=== PATIENT | female | born 1975 | race Caucasian/White ===

== ENCOUNTER 2023-03-14 14:43 | Emergency (ER) | payer MEDICAID, SELFPAY ==
[2023-03-14 15:41] VITALS: BP 128/77; PULSE 110; RESP 18; TEMP 37.1; O2SAT 99; BMI 35.0
--- NOTE | 2023-03-14 15:41 | ED.ABDPAIN ---
HPI - Abdominal Pain General Chief Complaint: Upper Respiratory Symptoms Stated Complaint: abd pain Time Seen by Provider: 03/14/23 16:51 Source: patient Mode of arrival: ambulatory Limitations: no limitations History of Present Illness HPI narrative: 47 yo male with no known medical history here with abdominal pain, cough, sore throat. Son here with similar symptoms. No fevers, chills, neck pain, neck stiffness, headache, skin rash, diarrhea, vomiting, chest pain, shortness of breath. Related Data Allergies Allergy/AdvReac Type Severity Reaction Status Date / Time No Known Allergies Allergy Verified 03/14/23 15:41 Review of Systems Review of Systems Yes all other systems are reviewed and are negative Constitutional: Reports no additional constitutional complaints, Denies body ache(s), Denies chills, Denies fever(s), Denies headache(s) and Denies weakness Eyes: Reports no additional eye complaints and Denies change in vision Reports system reviewed and no additional complaints, except as documented, Denies dizziness, Denies headache(s), Denies nasal congestion, Denies nasal discharge, Denies neck pain and Reports sore throat Cardiovascular: Reports no additional cardiovascular complaints, Denies chest pain, Denies leg edema and Denies dyspnea Respiratory: Reports no additional respiratory complaints, Reports cough and Denies dyspnea Gastrointestinal: Reports no additional gastrointestinal complaints, Reports abdominal pain, Denies diarrhea, Denies nausea and Denies vomiting Genitourinary: Reports no additional female genitourinary complaints and Denies urinary incontinence Musculoskeletal: Reports no additional musculoskeletal complaints, Denies back pain, Denies arthralgias, Denies joint swelling, Denies neck pain, Denies numbness and Denies tingling Skin/Breast: Reports system reviewed and no additional complaints, except as docu and Denies rash Reports system reviewed and no additional complaints, except as documented, Denies Abnormal speech present, Denies dizziness, Denies headache(s), Denies numbness, Denies tingling and Denies weakness [facility] Past Medical History Attestation statement: The following information was validated with the patient. Source: old records reviewed and nursing notes reviewed Onset Date is defined in the Problem List Problems that require an onset date and time if occurred within 24 hrs of arrival to the ED Aortic Dissection and Rupture; Neurologic impairment; Cardiopulmonary Arrest; Endotracheal Intubation; Insertion or Replacement of Mechanical Circulatory Assist Device Social History Social History Advance Directives: No Advance Directives Information Provided: No Physical Exam ED Vital Signs: Vital Signs - 24 hr 03/14/23 15:41 Temperature 98.7 F Pulse Rate 110 H Respiratory Rate 18 Blood Pressure 128/77 Pulse Oximetry 99 Oxygen Delivery Method Room Air BMI result Body Mass Index 35.0 Const General: cooperative, healthy appearing, comfortable and no acute distress Orientation/consciousness: patient oriented x3 Limitations: no limitations HENMT Head: Yes normal to inspection Ears: hearing grossly normal bilaterally and TM's normal bilaterally General nose exam: Normal external nose present Face and sinus: Yes normal facial exam Mouth: Normal oral and palatal mucosa present Throat: Yes posterior oropharynx normal, Yes tonsils normal and Yes uvula midline Eyes General: appearance normal, both eyes and all related structures Pupils: Equal, round and reactive pupils present Neck Neck: Yes normal visual inspection, Yes full ROM, Yes no lymphadenopathy and Yes no meningeal signs Chest Chest palpation & inspection: normal inspection of the chest Resp Effort & Inspection: normal respiratory effort Auscultation: clear to auscultation bilaterally Cardio Rate: regular rate Rhythm: regular rhythm Peripheral pulses: Peripheral pulses 2+ throughout GI Inspection: Yes normal to inspection Palpation (GI): Soft to palpation and nontender Auscultation: normal bowel sounds Back/Spine/Pelvis Thoracic/Lumbar Spine: thoracic and lumbar spine normal to inspection Skin General skin exam: no rashes or lesions noted Neuro General: patient oriented x3, no meningeal signs, no focal motor deficits and normal sensation to monofilament Cranial nerves: Yes Equal, round and reactive pupils present Cognition (Neuro): normal cognition Speech: No Abnormal speech present Gait exam (Neuro): Normal gait present Motor exam (neuro): 5/5 motor strength present throughout Extrem General: Yes normal to inspection, Yes no pedal edema and Yes no calf tenderness Course Course Course Narrative: This is a rapid medical exam. Deferred additional HPI, ROS, PE to primary provider. 47 yo female with no medical problems here with abdominal pain with coughing, cough, sore throat since yesterday. Will send strep, covid/flu/rsv testing VSS Medical Decision Making Medical Decision Making MDM Narrative: 47 yo male with no known medical history here with abdominal pain, cough, sore throat. Son here with similar symptoms. No fevers, chills, neck pain, neck stiffness, headache, skin rash, diarrhea, vomiting, chest pain, shortness of breath. On exam vitals are stable. Lungs are clear. Abdomen soft nontender. Likely viral syndrome Will send testing for strep, flu, COVID, RSV Differential Diagnosis Differential Diagnoses: The differential diagnosis associated with the presentation includes Influenza, viral syndrome, strep pharyngitis, Aom LOW SUSPICION FOR ACUTE ABDOMEN Admission/Observation Consideration of admission/observation: Escalation of care including admission/observation considered Flu A positive -no hypoxia or tachypnea suggesting need for supplemental oxygen and ordered Lab Data MDM Lab Attestation statement: I reviewed the patient's lab results. Flu a POSITIVE Labs: Lab Results 03/14/23 Range/Units 15:54 Influenza Type A (PCR) POSITIVE A (Negative) Influenza Type B (PCR) NEGATIVE (Negative) RSV RNA Qual (PCR) NEGATIVE (Negative) SARS-CoV-2 RNA (RT-PCR) NEGATIVE (Negative) S. pyogenes GrpA JAY Negative (Negative) Independent Historian Clinical information obtained from an independent historian. History obtained from or confirmed by: Friend Tests considered The following testing was considered but not selected: No hypoxia or tachypnea to suggest need for X-ray Prescription Management I considered prescription management with: Antiviral Review Tamiflu with patient. At this time they would like to defer treatment Discharge Plan Discharge Clinical Impression: Influenza Patient Disposition: Home, Self-Care Instructions: Influenza (ED) Additional Instructions: Alternate Motrin or Tylenol for any pain or fever Increase fluids, rest Alterna Motrin o Tylenol para cualquier dolor o fiebre. Elias manzanares?too daniels. Referrals: Physician,None [Primary Care Provider] - 1 week Stand Alone Forms: Work/School Release
== END 2023-03-14 17:22 | disposition home or self-care (01) ==
PROVIDERS: Emergency Provider Emergency Medicine
DX: J10.1 Influenza due to other identified influenza virus with other respiratory manifestations (principal)
CPT/HCPCS: 0241U; 87651; 99282; 99283

== ENCOUNTER 2023-07-15 12:04 | Outpatient (REF) | payer OTHER, SELFPAY ==
--- NOTE | ~2023-07-15 | XR_ITS ---
EXAMINATION: XR KNEE, LEFT CLINICAL INFORMATION: Worsening left knee pain. Question medial effusion. COMPARISON: None available. TECHNIQUE: Three views of the left knee. FINDINGS: No acute fracture or dislocation. No joint space or marginal osteophytes. No osseous erosion. No abnormal soft tissue calcification. Trace joint effusion. XR/XR knee LT 3V IMPRESSION: Trace joint effusion.
== END 2023-07-15 12:05 | disposition home or self-care (01) ==
LOC: HO.HHCX 12:04
PROVIDERS: Visit Provider Emergency Medicine
DX: M25.562 Pain in left knee (principal)
CPT/HCPCS: 73562

== ENCOUNTER 2023-11-30 09:19 | Outpatient (REF) | payer OTHER, SELFPAY ==
[2023-11-30 11:31] LABS: MANUAL DIFF FLAG NO
[2023-11-30 11:35] LABS: Basophils Absolute Auto 0.1 X10*3/uL (0.0-0.2); Eosinophils Absolute Auto 0.3 X10*3/uL (0.0-0.4); Eosinophils Percent Auto 3.7 % (0-4); Hematocrit 31.3 % (37.0-47.0); Hemoglobin 9.7 g/dl (12.0-16.0); Imm Gran Abs Auto 0.03 X10*3/uL (0.00-0.03); Imm Gran Pct Auto 0.3 % (0.0-0.4); Lymphocytes Absolute Auto 3.9 X10*3/uL (1.2-4.9); Lymphocytes Percent Auto 41.8 % (20-40); Mean Corpuscular Hemoglobin 24.7 pg (27.0-33.0); Mean Corpuscular Volume 79.6 fL (80.0-98.0); Mean Platelet Volume 10.1 fL (9.4-12.3); Monocytes Absolute Auto 0.7 X10*3/uL (0.1-1.2); Monocytes Percent Auto 7.4 % (2-11); Neutrophils Absolute Auto 4.3 x10*3/uL (2.0-8.3); Neutrophils Percent Auto 45.8 % (45-73); Platelet Count 581 X10*3/uL (160-400); Red Blood Count 3.93 X10*6/uL (4.20-5.50); Red Cell Distribution Width 17.2 % (11.0-16.0); White Blood Count 9.3 X10*3/uL (4.8-10.8)
[2023-11-30 12:00] LABS: Alanine Aminotransferase 21 U/L (0-31); Albumin Level 4.1 g/dL (3.5-5.0); Alkaline Phosphatase 75 U/L (39-117); Anion Gap 11 (12-20); Aspartate Amino Transferase 17 U/L (5-31); Bilirubin Total 0.4 mg/dL (0.0-1.0); Blood Urea Nitrogen 10 mg/dL (9-16); Calcium 8.8 mg/dL (8.4-10.2); Carbon Dioxide 25 mmol/L (22-29); Chloride 110 mmol/L (96-108); Cholesterol 150 mg/dL (<200); Estimated Glomerular Filt Rate > 60; Glucose Random 104 mg/dL (60-115); HDL Cholesterol 44 mg/dL (>40); LDL Cholesterol Calculated 93 mg/dL (<100); Potassium 3.9 mmol/L (3.3-5.1); Sodium 142 mmol/L (135-145); Total Protein 6.7 g/dL (6.5-8.0); Triglycerides 67 mg/dL (<150)
[2023-11-30 12:13] LABS: HBS Num1 0.55 mIU/mL (0-7.99); HBc Num1 0.15 S/CO (0.00-0.79); HBsAGNum1 0.36 S/CO (0.00-0.99); Hepatitis A Antibody IgM 0.16 Index (0-0.79); Hepatitis B Core Antibody Nonreactive (Nonreactive); Hepatitis B Surface Antigen Negative (Negative); ~HepC Num1 0.23 S/CO (0.00-0.79); ~Hepatitis A Antibody IgM Nonreactive (Nonreactive); ~Hepatitis B Surface Antibody NONREACTIVE (Nonreactive); ~Hepatitis C Antibody Nonreactive (Nonreactive)
[2023-11-30 12:18] LABS: TSH reflex Free T4 0.99 uIU/mL (0.32-4.0); Vitamin D 25-OH Total 34.4 ng/mL (>30)
[2023-11-30 12:44] LABS: Reflex LDLD? No
== END 2023-11-30 09:20 | disposition home or self-care (01) ==
LOC: HO.HHCL 09:19
PROVIDERS: Visit Provider Internal Medicine
DX: M25.562 Pain in left knee (principal); G89.29 Other chronic pain; F43.21 Adjustment disorder with depressed mood
CPT/HCPCS: 36415; 80053; 80061; 82306; 84443; 85025; 86704; 86706; 86709; 86803; 87340

== ENCOUNTER 2023-12-17 11:49 | Outpatient (REF) | payer OTHER, SELFPAY ==
[2023-12-17 13:02] LABS: Hematocrit 32.1 % (37.0-47.0); Hemoglobin 9.9 g/dl (12.0-16.0)
[2023-12-17 13:40] LABS: Ferritin 5 ng/mL (10-250)
[2023-12-17 13:52] LABS: Folate 14.8 ng/mL (> or = 4.0); Vitamin B12 370 pg/mL (200-900)
[2023-12-21 14:48] LABS: Hematocrit 32.6 % (35.0-45.0); MCH 24.6 pg (27.0-33.0); MCV 80.3 fL (80.0-100.0); RBC 4.06 Million/uL (3.80-5.10); RDW 16.3 % (11.0-15.0)
== END 2023-12-17 11:50 | disposition home or self-care (01) ==
LOC: HO.HHCL 11:49
PROVIDERS: Visit Provider Internal Medicine
DX: D50.9 Iron deficiency anemia, unspecified (principal)
CPT/HCPCS: 36415; 82607; 82728; 82746; 83020; 85014; 85018; 85041

== ENCOUNTER 2023-12-17 15:37 | Outpatient (REF) | payer OTHER, SELFPAY ==
--- NOTE | ~2023-12-17 | MM_ITS ---
EXAMINATION: MM SCREENING DIGITAL BREAST TOMOSYNTHESIS, BILATERAL CLINICAL INFORMATION: Screening. Asymptomatic. COMPARISON: Mammography: Comparison is made with available priors TECHNIQUE: Digital breast mammography with tomosynthesis is performed in both the craniocaudal and mediolateral oblique views along with computer-aided detection (CAD). FINDINGS: The breasts are extremely dense, which lowers the sensitivity of mammography (ACR BI-RADS breast composition Category d). Left: Circumscribed oval masses superior breast and central breast retroareolar region posterior depth. No suspicious calcifications or other abnormal findings. Right: Circumscribed oval mass upper outer breast posterior depth and circumscribed oval mass superior breast middle depth on MLO view. Suspicious calcifications or other abnormal findings. MM/MM tomosynthesis screening BI IMPRESSION: Additional imaging is recommended ASSESSMENT: BI-RADS BI-RADS 0 - Incomplete: Needs additional Imaging. RECOMMENDATION: Bilateral ultrasound recommended at this time. Radiology department will contact the patient for the additional imaging. Additional Imaging required This examination should not preclude the clinical evaluation of a suspicious palpable abnormality. This patient's information was entered into a reminder system with a target due date for their next mammogram. Electronically signed by: Carolina Pierson DO 12/29/2023 12:14 PM EDT
== END 2023-12-17 15:38 | disposition home or self-care (01) ==
LOC: HO.MAMMO 15:37
PROVIDERS: PCP Internal Medicine; Visit Provider Internal Medicine
DX: Z12.31 Encounter for screening mammogram for malignant neoplasm of breast (principal)
CPT/HCPCS: 77063; 77067

== ENCOUNTER → 2023-12-17 15:45 | Outpatient (BNV) | payer OTHER, SELFPAY | PROVIDERS: PCP Internal Medicine; Visit Provider Internal Medicine | DX: Z12.31 Encounter for screening mammogram for malignant neoplasm of breast (principal) | CPT/HCPCS: 77063; 77067 ==

== ENCOUNTER 2024-01-28 10:29 | Outpatient (REF) | payer OTHER, SELFPAY ==
--- NOTE | ~2024-01-28 | US_ITS ---
EXAMINATION: US DIAGNOSTIC ULTRASOUND BREAST, BILATERAL CLINICAL INFORMATION: Diagnostic exam; follow-up LEFT breast circumscribed oval masses superior and central breast retroareolar region posterior depth. Follow-up RIGHT circumscribed oval masses upper outer breast posterior depth, and superior breast middle depth on MLO view. COMPARISON: Mammography 12/17/2023, 12/21/2019, 07/13/2018, and 09/01/2016. TECHNIQUE: Ultrasound of the both breasts is performed with real-time matt scale imaging and color Doppler. The RIGHT breast was scanned from the 9:00 to the 3:00 axis, and the LEFT breast was also scanned from the 9:00 to the 3:00 axis to include the areas of mammographic concern. FINDINGS: Multiple bilateral circumscribed masses are by definition benign. -RIGHT breast shows numerous simple cysts, correlating with the mammographic foci. The largest measures 3.0 cm in diameter. -LEFT breast shows numerous grouped simple cysts present, the largest measuring 2.1 cm in diameter. There are no suspicious masses, suspicious cystic structures, abnormal shadowing, or areas of architectural alteration in either breast in the areas interrogated. US/US breast BI limited mamm only IMPRESSION: -There are no findings suspicious for malignancy. -Circumscribed oval masses in both breasts are by definition benign and correlate with multiple simple cysts in both breasts on ultrasound. These findings are benign and no further follow-up recommended. -Recommend the patient resume routine annual screening mammography in one year. ASSESSMENT: BI-RADS 2: Benign RECOMMENDATION: Routine annual mammography screening. This patient's information was entered into a reminder system with a target due date for their next mammogram. Electronically signed by: Guillermo Rush MD 01/28/2024 11:58 AM SARIAH
== END 2024-01-28 10:30 | disposition home or self-care (01) ==
LOC: HO.MAMMO 10:29
PROVIDERS: PCP Internal Medicine; Visit Provider Internal Medicine
DX: N60.02 Solitary cyst of left breast (principal); N60.01 Solitary cyst of right breast
CPT/HCPCS: 76642

== ENCOUNTER → 2024-01-28 11:00 | Outpatient (BNV) | payer OTHER, SELFPAY | PROVIDERS: PCP Internal Medicine; Visit Provider Radiology Diagnostic Radiology | DX: N60.01 Solitary cyst of right breast (principal); N60.02 Solitary cyst of left breast | CPT/HCPCS: 76642 ==

== ENCOUNTER 2024-03-07 16:43 | Outpatient (REF) | payer OTHER, SELFPAY | END 2024-03-07 16:44 | disposition home or self-care (01) | LOC: HO.HHCLNP 16:43 | PROVIDERS: Visit Provider Internal Medicine | DX: Z13.89 Encounter for screening for other disorder (principal) | CPT/HCPCS: 83013 ==

== ENCOUNTER 2024-05-18 14:40 | Outpatient (AMB) | payer OTHER, SELFPAY ==
--- NOTE | 2024-05-18 14:41 | A.OFFVIS_ITS ---
Vital Signs 05/18/24 14:43 Height 5 ft 6 in Weight 189 lb 9.561 oz BMI 30.6 BP 141/81 H Blood Pressure Location Lt brachial Position Sitting Pulse 102 H Intake Visit Reasons: Gastroesophageal reflux disease (GERD) Intake Note: Kylie presents in the office as a new patient for GERD. CC: She states that she is here today due to acid reflux. She states that she has gastritis - she denies irregular bowel movements. She gets pains in the stomach. Post Anesthesia Nurse Required: Yes Allergies No Known Allergies Allergy (Verified 05/18/24 14:44) HPI Comments Details: 48 y.o F with PMH of H Pylori 2019, who is here to establish care. Seen with Brielle REEDER as japanese interpreter. Reason for referral is anemia. Pt reports significant pyrosis if she skips omeprazole. Nausea +. Regurgitation +. No dysphagia. Has been on omeprazole x 5 years. Had an EGD 2019 (Shanice REEDER) when she was also diagnosed with H Pylori - treated. Has never had a colo. Also reports heavy periods. Labs with microcytic anemia and ferritin of 5. Laboratory Tests 12/17/23 11:50 Hgb 9.9 L Hgb (Send Out) 10.0 L Ferritin 5 L PFSH Surgical History (Updated 05/18/24 @ 14:44 by YVETET Guzmán) History of esophagogastroduodenoscopy (EGD) Review of Systems Const All systems reviewed & are unremarkable except as noted in HPI and below Physical Exam Vital Signs: Last Vital Signs Pulse 102 H 05/18/24 14:43 BP 141/81 H 05/18/24 14:43 BMI result Body Mass Index 30.6 No apparent distress Nonicteric Abdomen soft, nondistended Alert and oriented x3, normal gait Assessment & Plan Assessment & Plan (1) Anemia: Code(s): D64.9 - Anemia, unspecified Category: Medical (2) Iron deficiency: Code(s): E61.1 - Iron deficiency Category: Medical (3) GERD (gastroesophageal reflux disease): Code(s): K21.9 - Gastro-esophageal reflux disease without esophagitis Category: Medical (4) Menorrhagia: Code(s): N92.0 - Excessive and frequent menstruation with regular cycle Category: Medical Plan 1. FREDDY: Likely 2/2 menorrhagia. However given upper GI sx will be prudent to get egd/colo done. DDx: PUD, celiac, AVMs, large friable polyp, mass. Reports has already taken 3 months of PO iron since last labs. Pt hesitant to pursue egd as reports was told will not be covered by insurance. Plan: - Recheck CBC and iron studies - FIT canceled - [place] to be booked - Pt will call insurance re EGD and call us back - If still FREDDY - will also recommend IV iron - Pt also advised to discuss machine featheredger and reducer referral for menorrhagia with pcp Follow up after scopes Orders: Orders Complete Blood Count no Diff Today D64.9 - Anemia, unspecified Transglutaminase IgA Today D64.9 - Anemia, unspecified Immunoglobulin A Today D64.9 - Anemia, unspecified Ferritin Today D64.9 - Anemia, unspecified IRON PROFILE Today D64.9 - Anemia, unspecified Vitamin B12 and Folate Today D64.9 - Anemia, unspecified Fecal Globin Insure 12/10/23 D50.9 - Iron deficiency anemia, unspecified Medications: New omeprazole 20 mg PO DAILY 90 caps 1RF peg 3350-electrolytes 236-22.74-6.74 -5.86 gram (Golytely) as per split prep instructions, until fecal effluent is clear 240 mL PO Q10M 4,000 mL 0RF colonoscopy Coding Level of Care Code New Pt Level 4 (57671) Diagnoses Anemia D64.9 Iron deficiency E61.1 GERD (gastroesophageal reflux disease) K21.9 Menorrhagia N92.0
[2024-05-18 14:43] VITALS: BP 141/81; PULSE 102; BMI 30.6
--- OUTSIDE RECORDS SUMMARY | 2024-05-18 17:17 | XMS_ITS | Encounter Summary ---
Author Organization [employer] Address [address] [place] [address] Care Team Providers Care Roving Hauler Name Role Phone Milena Acevedo MD Primary Care Provider + Encounter Details Date Type Department Care Team (Late st Contact Info) Description 05/18/2024 Orders Only GENERIC EXTERNAL DATA DEPARTMENT Provider, Generic External Data Social History Tobacco Use Types Packs/Day Years Used Date Smoking Tobacco: Never Smokeless Tobacco: Never Alcohol Use Standard Drinks/Week Comments Never 0 (1 standard drink = 0.6 oz pur e alcohol) Depression Answer Date Recorded Patient Health Questionnaire-9 Score 1 11/25/2023 Patient Health Questionnaire-9 Score 1 11/25/2023 Last PHQ-9: Questionnaire Data Not on file 0 11/25/2023 Housing Stability Answer Date Recorded What is your housing situation today? I have hector john 11/25/[address] you li ve. Do you have problems with any of the following? None of the above 11/25/2023 Food Insecurity Answer Date Recorded Within the past 12 months, y ou worried that your food would run out before you got money to buy more: Never True 11/25/2023 Within the past 12 months,th e food you bought just didn't last and you didn't have enough money to get more: Never True Transportation Answer Date Recorded In the past 12 months, has l ack of transportation kept you from medical appts, meetings, work or from getting things needed for daily living? No 11/25/2023 Utilities Answer Date Recorded In the past 12 months, has t he electric, gas, oil or water company threatened to shut off services in your home? 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 Not on file Not on file Not on file documented as of this encounter Plan of Treatment Upcoming Encounters Date Type Department Care Team ([facility] st Contact Info) Description 08/04/2024 12:00 PM EDT Office Visit [facility] [address] [place], [place] [phone] Milena Acevedo MD [address] [place], [place] [phone] documented as of this encounter Procedures Procedure Name Priority Date/Time Associated Diagnosis Comments VITAMIN B12/FOLATE, SERUM PANEL Routine 05/18/2024 3:29 PM EDT IRON AND TOTAL IRON BINDING CAPACITY Routine 05/18/2024 3:29 PM EDT CBC Routine 05/18/2024 3:29 PM EDT FERRITIN Routine 05/18/2024 3:29 PM EDT documented in this encounter Results * Vitamin B12 (Cobalamin) and Folate Panel, Serum (05/18/2024 3:29 PM EDT) Vitamin B12 307 200 - 900 pg/mL [facility] Comment:NORMAL 200-900 PG/ML INDETERMINATE 160-199 PG/ML DEFICIENT < 160 PG/ML Folate 14.1 > or = 4.0 ng/mL [facility] Comment:Reference Values:> o r = 4.0 ng/mL< 4.0 ng/mL suggests folate deficiency Methotrexate, aminopterin and folinic acid(leucovorin) are chemotherapeutic agents whose molecularstructures are similar to folate; therefore, the Architectfolate assay cannot be used for patients using these drugs. 05/18/2024 3:29 PM EDT 05/18/2024 3:29 PM EDT Generic External Data Provider LAB BLOOD ORDERAB LES Final Result Performing Organization Address [facility] Co de Phone Number [facility] [address] [place] [address] [phone] * Ferritin (05/18/2024 3:29 PM EDT) Ferritin 28 10 - 250 ng/mL [facility] 05/18/2024 3:29 PM EDT 05/18/2024 3:29 PM EDT Generic External Data Provider LAB BLOOD ORDERAB LES Final Result Performing Organization Address [facility] de Phone Number [facility] [address] [place] [address] [phone] * Iron And Total Iron Binding Capacity (05/18/2024 3:29 PM EDT) Pathologist [facility] Iron 67 30 - 160 mcg/dL [facility] Total Iron Binding Capacity 353 228 - 428 mcg/dL [facility] Percent Iron Saturation 19 15 - 50 % [facility] Unsaturated Iron Binding 286 ug/dL [facility] 05/18/2024 3:29 PM EDT 05/18/2024 3:29 PM EDT Generic External Data Provider LAB BLOOD ORDERAB LES Final Result Performing Organization Address [facility] Co de Phone Number [facility] [address] [place] [address] [phone] * (ABNORMAL) CBC (05/18/2024 3:29 PM EDT) White Blood Count 9.8 4.8 - 10.8 X10*3/uL [facility] Red Blood Count 4.28 4.20 - 5.50 X10*6/uL [facility] Hemoglobin 13.3 12.0 - 16.0 g/dl [facility] Hematocrit 39.1 37.0 - 47.0 % [facility] Mean Corpuscular Volume 91.4 80.0 - 98.0 fL [facility] Mean Corpuscular Hemoglobin 31.1 27.0 - 33.0 pg [facility] Mean Corpuscular HGB Conc 34.0 31.0 - 35.0 g/dl [facility] Red Cell Distribution Width 13.2 11.0 - 16.0 % [facility] Platelet Count 466(H) 160 - 400 X10*3/uL [facility] Mean Platelet Volume 9.7 9.4 - 12.3 fL [facility] NRBC Pct Auto 0.0 0.0 - 0.2 /100WBC [facility] NRBC Abs Auto 0.000 0.0 - 0.012 X10*3/uL [facility] 05/18/2024 3:29 PM EDT 05/18/2024 3:29 PM EDT us Generic External Data Provider LAB BLOOD ORDERAB LES Final Result Performing Organization Address City/State/[facility] Co de Phone Number [facility] [address] [place] [address] [phone] documented in this encounter Visit Diagnoses Not on filedocumented in this encounter Additional Health Concerns Assessment Noted Time PHQ-9 Depression Total Score: 1 11/25/19 24 3:06 PM EDT documented as of this encounter Care Teams Roving Hauler Relationship Specialty Start Date End Date Milena Acevedo MD [address] [place] [phone] PCP - General Internal Medicine 11/25/23 documented as of this encounter
--- OUTSIDE RECORDS SUMMARY | 2024-05-18 17:17 | XMS_ITS | Encounter Summary ---
Author Organization [employer] Address [address] [place] [address] Care Team Providers Care Talkback Host Name Role Phone Milena Acevedo MD Primary Care Provider + Encounter Details Date Type Department Care Team (Late st Contact Info) Description 12/25/[address] [facility] [address] [place] [address] Provider, MD Chasity Social History Tobacco Use Types Packs/Day Years [...] is your housing situation today? 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 [address] [place] [phone] Milena Acevedo MD [address] [place] [phone] documented as of this encounter Procedures Procedure Name Priority Date/Time Associated Diagnosis Comments PAP/HPV Routine 09/29/2019 8:11 AM EDT documented in this encounter Results * HM PAP/HPV (09/29/2019 8:11 AM EDT) Pap Smear 1. NILM 1. NILM HPV Undetected Undetected, Indeterminate , Quantitative, Not Detected Historical Provider HEALTH MAINTENANCE Edited Result - Final documented in this encounter Visit Diagnoses Not on filedocumented in this encounter Additional Health Concerns Assessment Noted Time PHQ-9 Depression Total Score: 1 11/25/19 24 3:06 PM EDT documented as of this encounter Care Teams Talkback Host Relationship Specialty Start Date End Date Milena Acevedo MD [address] [place] [address] [phone] PCP - General Internal Medicine 11/25/23 documented as of this encounter
--- OUTSIDE RECORDS SUMMARY | 2024-05-18 17:17 | XMS_ITS | Clinical Summary ---
Author Organization [employer] Address [address] [place] [address] [address] [place] [address] Care Team Providers Care Learning Administrator Name Role Phone Milena Acevedo MD Primary Care Provider + Allergies Active Allergy Reactions Criticality Noted Date Comments Gramineae Pollens 07/15/2023 Medications ibuprofen 800 MG tablet Take 1 tablet TID for 5-7 days, then every 8 hours as needed for pain or inflammation 30 tablet 4 Active ferrous gluconate (Fergon) 324 (38 Fe) MG tablet Take 1 tablet (324 mg) by mouth with breakfast. 30 tablet 3 4 12/23/19 25 Active Ascorbic Acid (vitamin C) 500 MG tablet Take 1 tablet (500 mg) by mouth Once per day. Take 1 tab po daily with breakfast and Iron pills 30 tablet 3 4 12/23/19 25 Active Blood Pressure Monitoring (Blood Pressure Cuff) misc Use daily as prescribed 1 each 4 Active lisinopril 2.5 MG tablet Take 1 tablet (2.5 mg) by mouth Once per day. 30 tablet 11 5 05/13/19 26 Active cetirizine (ZyrTEC) 10 MG tablet Take 1 tablet (10 mg) by mouth Once per day. 30 tablet 2 5 08/11/19 25 Active Hospital, Clinic, or Other Facility Administered Medication Ordered Dose Route Frequency Start Date End Date Status lidocaine (Xylocaine) 2 % injection 20 mgIndications:Neoplasm of uncertain behavior 20 mg IJ Once 10/23/2023 Active Active Problems Problem Noted Date Diagnosed Date Benign essential HTN 05/12/2024 Assessment & Plan (05/12/2024 1:51 PM EST): New onset. Start low-dose lisinopril and follow-up with me in 4 to 6 weeks with BMP. We discussed about potential side effects including cough, rash or angioedema and hyperkalemia. Counseled re low salt diet/increase moderate physical activity. Check home BP BIW and prn CP/GALVEZ/SAEED Non smoking patient. Rash 05/12/2024 Assessment & Plan (05/12/2024 1:52 PM EST): Very mild, no evidence of angioedema or generalized urticaria. Keep a symptom diary, recommended use of unscented Dove soap or Aveeno soap only. Start Zyrtec daily and follow-up with at next visit in 4 to 6 weeks Chronic gastritis without bleeding 03/07/2024 Assessment & Plan (03/07/2024 9:36 AM EST): She was treated for H Pylori in 2019, will do Urea Breath test today and treat PRN otherwise. Take Sucralfate PRN only. I gave her information about lifestyle modifications and treatment of gastritis. Iron deficiency anemia 03/07/2024 Assessment & Plan (03/07/2024 9:36 AM EST): Unclear if related to DUB vs. PUD. Continue iron supplementation until April 2024 and check labs then. She will need to schedule a colonoscopy. Elevated blood pressure reading 11/25/2023 Assessment & Plan (03/07/2024 9:34 AM EST): She has pre-HTN today. Counseled re low salt diet/increase moderate physical activity. Check home BP 3 times per week and prn CP/GALVEZ/SAEED. Non smoking patient. FU with me in 2 months. Assessment & Plan (11/25/2023 3:24 PM EDT): No history of HTN Counseled re low salt diet/increase moderate physical activity. Check home BP BIW and prn CP/GALVEZ/SAEED Non smoking patient. 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 and refer to PRN Abnormal mammogram of left breast 11/25/2023 Assessment & Plan (11/25/2023 3:26 PM EDT): - status post left breast biopsy more than 5 years ago, results not available - order diagnostic mammogram - pt will have influenza IZ today Chronic pain of left knee 11/25/2023 Assessment & Plan (11/25/2023 3:39 PM EDT): - seems to be either meniscal injury vs early OA - likes to take Tylenol or Ibuprofen PRN - refer to pt History of cholecystectomy 11/25/2023 Encounters Date Type Department Care Team Description 05/18/2024 Orders Only GENERIC EXTERNAL DATA DEPARTMENT Provider, Generic External Data 05/12/2024 11:15 AM EST Office Visit [facility] MEDICINE [address] [place] [phone] Milena Acevedo MD Benign essential HTN (Primary Dx); Rash 05/12/2024 Travel 05/11/2024 Travel 05/10/2024 Telephone [facility]INE [address] [place] [phone] Milena Acevedo MD Chart prep 03/17/2024 1:00 PM EST Office Visit [facility] OPTOMETRY [address] [place] [address] TarkaRhiannon, OD Myopia, bilateral (Primary Dx); Dry eyes, bilateral 03/17/2024 Telephone [facility] MEDICINE [address] [place] [address] Milena Acevedo MD Lab Orders 03/17/2024 Travel 03/16/2024 Travel 03/08/2024 Telephone [facility]INE [address] [place] [address] Carole Lomeli, helicopter technician Orders 03/07/2024 9:00 AM EST Office Visit [address] [address] Milena Acevedo MD Elevated blood pressure reading (Primary Dx); Other chronic gastritis without hemorrhage; Other iron deficiency anemia; Screening for colorectal cancer 03/07/2024 Travel 03/06/2024 Travel 03/04/2024 Telephone [facility] [address] [place] [address] Kassandra Cano MA Chart prep 02/25/2024 Patient Outreach [facility] [address] [place] [address] Milena Acevedo MD Pre-visit Planning (LVM) from Last 3 Months Immunizations Name Administration Dates Next Due Influenza, seasonal, injectable, preservative fr ee 11/25/2023 Social History Tobacco Use Types Packs/Day Years Used Date Smoking Tobacco: Never Smokeless Tobacco: Never Tobacco Cessation:Counseling Given: Not Answered Alcohol Use Standard Drinks/Week Comments Never 0 (1 standard drink = 0.6 oz pur e alcohol) Depression Answer Date Recorded Patient Health Questionnaire-9 Score 1 11/25/2023 Patient Health Questionnaire-9 Score 1 11/25/2023 Last PHQ-9: Questionnaire Data Not on file 0 11/25/2023 Housing Stability Answer Date Recorded What is your housing situation today? 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 Not on file Not on file Last Filed Vital Signs Vital Sign Reading Time Taken Comments Blood Pressure 135/94 05/12/2024 11:25 AM EST Pulse 92 05/12/2024 11:25 AM EST Temperature 36.4 ??C (97.5 ??F) 05/12/2024 1 1:25 AM EST Respiratory Rate 18 05/12/2024 11:2 5 AM EST Oxygen Saturation 100% 03/07/2024 9:04 AM EST Inhaled Oxygen Concentration - - Weight 88.4 kg (194 lb 12.8 oz) 025 11:25 AM EST Height 167.6 cm (5' 6 ) 05/12/2024 11:2 5 AM EST Body Mass Index 31.44 05/12/2024 11:25 AM EST Plan of Treatment Upcoming Encounters Date Type Department Care Team (Late st Contact Info) Description 08/04/2024 12:00 PM EDT Office Visit [facility]INE [address] [place] [address] Milena Acevedo MD [address] [place] [address] Health Maintenance Due Date Last Done Comments CT Colonography 1975 Colonoscopy 1975 Colorectal Cancer Screening 1975 FIT DNA/Cologuard 1975 FIT 1975 FOBT 1975 HIV Screening 1975 Sigmoidoscopy 1976 Alcohol/Substance Use Screening 1988 DTaP/Tdap/Td Vaccines (1 - Tdap) 06/09/1995 Hepatitis B Vaccines (1 of 3 - 19+ 3-dose series) 06/09/1995 COVID-19 Vaccine (2023-2 5 season) 2023 Cervical Cancer Screening 09/28/2024 HPV/Cotest 09/28/2024 09/29/2019 Pap Smear 09/28/2024 09/29/2019 Depression Screening 11/24/2024 11/25/2023, 11/25/2023 Family Planning (PISQ) 11/24/2024 11/25/2023 SDOH Screening 11/24/2024 11/25/2023 Mammogram 01/27/2025 01/28/2024, 12/17/2023 Tobacco Screening 05/12/2025 05/12/2024 Zoster Vaccines (1 of 2) 2026 Lipid Panel 11/29/2028 11/30/2023 RSV Patients and Patients Aged 60 years or older (1 - 1-dose 75+ series) 06/09/2051 Influenza Vaccine Completed 11/25/2023 Hepatitis C Screening Completed 11/30/2023 HIB Vaccines Aged Out No longer eligi ble based on patient's age to complete this topic HPV Vaccines Aged Out No longer eligi ble based on patient's age to complete this topic Hepatitis A Vaccines Aged Out No long er eligible based on patient's age to complete this topic IPV Vaccines Aged Out No longer eligi ble based on patient's age to complete this topic Meningococcal Vaccine Aged Out No diana stew eligible based on patient's age to complete this topic Pneumococcal Vaccine: Pediatrics (0 to 5 Years) and At-Risk Patients (6 to 49) Years) Aged Out No longer eligible b ased on patient's age to complete this topic RSV under 20 months Aged Out No longe r eligible based on patient's age to complete this topic Rotavirus Vaccines Aged Out No longer eligible based on patient's age to complete this topic Procedures Procedure Name Priority Date/Time Associated Diagnosis Comments VITAMIN B12/FOLATE, SERUM PANEL Routine 05/18/2024 3:29 PM EDT FERRITIN Routine 05/18/2024 3:29 PM EDT IRON AND TOTAL IRON BINDING CAPACITY Routine 05/18/2024 3:29 PM EDT CBC Routine 05/18/2024 3:29 PM EDT BI US BREAST LIMITED BILATERAL Routine 01/28/2024 11:00 AM EST HEPATITIS PANEL, GENERAL Routine 11/30/2023 9:21 AM EDT Adjustment disorder with depressed mood LIPID PANEL WITH REFLEX TO DIRECT LDL Routine 11/30/2023 9:20 AM EDT Adjustment disorder with depressed mood HM PAP/HPV Routine 09/29/2019 8:11 AM EDT from Last 3 Months or Most Recently Relevant to Health Maintenance Results * Vitamin B12 (Cobalamin) and Folate Panel, Serum (05/18/2024 3:29 PM EDT) Vitamin B12 307 200 - 900 pg/mL [facility] Comment:NORMAL 200-900 PG/ML INDETERMINATE 160-199 PG/ML DEFICIENT < 160 PG/ML Folate 14.1 > or = 4.0 ng/mL [facility] Comment:Reference Values:> o r = 4.0 ng/mL< 4.0 ng/mL suggests folate deficiency Methotrexate, aminopterin and folinic acid(leucovorin) are chemotherapeutic agents whose molecularstructures are similar to folate; therefore, the Architectfolate assay cannot be used for patients using these drugs. 05/18/2024 3:29 PM EDT 05/18/2024 3:29 PM EDT us Generic External Data Provider LAB BLOOD ORDERAB LES Final Result [facility] [address] [place] [phone] * Iron And Total Iron Binding Capacity (05/18/2024 3:29 PM EDT) Iron 67 30 - 160 mcg/dL [facility] Total Iron Binding Capacity 353 228 - 428 mcg/dL [facility] Percent Iron Saturation 19 15 - 50 % [facility] Unsaturated Iron Binding 286 ug/dL [facility] 05/18/2024 3:29 PM EDT 05/18/2024 3:29 PM EDT us Generic External Data Provider LAB BLOOD ORDERAB LES Final Result Performing Organization Address City/[facility]/ZIP Co de Phone Number [facility] [address] [place] [address] [phone] * (ABNORMAL) CBC (05/18/2024 3:29 PM EDT) White Blood Count 9.8 4.8 - 10.8 X10*3/uL [facility] Red Blood Count 4.28 4.20 - 5.50 X10*6/uL [facility] Hemoglobin 13.3 12.0 - 16.0 g/dl [facility] Hematocrit 39.1 37.0 - 47.0 % [facility] Mean Corpuscular Volume 91.4 80.0 - 98.0 fL [facility] Mean Corpuscular Hemoglobin 31.1 27.0 - 33.0 pg [facility] Mean Corpuscular HGB Conc 34.0 31.0 - 35.0 g/dl [facility] Red Cell Distribution Width 13.2 11.0 - 16.0 % [facility] Platelet Count 466(H) 160 - 400 X10*3/uL [facility] Mean Platelet Volume 9.7 9.4 - 12.3 fL [facility] NRBC Pct Auto 0.0 0.0 - 0.2 /100WBC [facility] NRBC Abs Auto 0.000 0.0 - 0.012 X10*3/uL [facility] 05/18/2024 3:29 PM EDT 05/18/2024 3:29 PM EDT us Generic External Data Provider LAB BLOOD ORDERAB LES Final Result Performing Organization Address City/[facility]/ZIP Co de Phone Number [facility] [address] [place] [address] [phone] * Ferritin (05/18/2024 3:29 PM EDT) Ferritin 28 10 - 250 ng/mL [facility] 05/18/2024 3:29 PM EDT 05/18/2024 3:29 PM EDT us Generic External Data Provider LAB BLOOD ORDERAB LES Final Result [facility] [address] [facility] [place] [address] [phone] * BI US Breast Limited Bilateral (01/28/2024 11:00 AM EST) Anatomical Region Laterality Modality Breast Bilateral Ultrasound 01/28/2024 11:0 0 AM EST Narrative 01/28/2024 12:01 PM EST ? [facility] ? [address] ?[place] [address] ? Ultrasound Report ? Signed ? Patient: Donovan,Kylie ?MR#: [id number] ? : 1975 ?Acct:[id number] ? Age/Sex: 48 / F ?ADM Date: 01/28/24 ? Loc: HO.MAMMO ? Attending Dr: Milena Acevedo MD ? Ordering Physician: Milena Acevedo MD ?? Date of Service: 01/28/24 ?? Procedure(s): US breast BI limited mamm only ?? Accession Number(s): [id number] ? cc: Milena Acevedo MD ? EXAMINATION: ?? US DIAGNOSTIC ULTRASOUND BREAST, BILATERAL ? CLINICAL INFORMATION: ? Diagnostic exam; follow-up LEFT breast circumscribed oval masses ?? superior and central breast retroareolar region posterior depth. ?? Follow-up RIGHT circumscribed oval masses upper outer breast posterior ?? depth, and superior breast middle depth on MLO view. ? COMPARISON: ?? Mammography 12/17/2023, 12/21/2019, 07/13/2018, and 09/01/2016. ? TECHNIQUE: ?? Ultrasound of the both breasts is performed with real-time matt scale ?? imaging and color Doppler. The RIGHT breast was scanned from the 9:00 ?? to the 3:00 axis, and the LEFT breast was also scanned from the 9:00 to ?? the 3:00 axis to include the areas of mammographic concern. ? FINDINGS: ?? Multiple bilateral circumscribed masses are by definition benign. ? -RIGHT breast shows numerous simple cysts, correlating with the ?? mammographic foci. The largest measures 3.0 cm in diameter. ? -LEFT breast shows numerous grouped simple cysts present, the largest ?? measuring 2.1 cm in diameter. ? There are no suspicious masses, suspicious cystic structures, abnormal ?? shadowing, or areas of architectural alteration in either breast in the ?? areas interrogated. ? US/US breast BI limited mamm only ?? IMPRESSION: ?? -There are no findings suspicious for malignancy. ? -Circumscribed oval masses in both breasts are by definition benign and ?? correlate with multiple simple cysts in both breasts on ultrasound. ?? These findings are benign and no further follow-up recommended. ? -Recommend the patient resume routine annual screening mammography in ?? one year. ? ASSESSMENT: ? BI-RADS 2: Benign ? RECOMMENDATION: ?? Routine annual mammography screening. ? This patient's information was entered into a reminder system with a ?? target due date for their next mammogram. ? Electronically signed by: ??Guillermo Rush MD ??01/28/2024 11:58 AM EST RP ? Dictated By: ?Guillermo Rush MD ? Signed By: ?<Electronically signed by Guillermo Rush MD in OV> ?01/28/24 1158 ? DD/ 1100 ? TD/TT: 01/28/24 1120 ? Ship'S Engineer: ? Procedure Note Nahum, Image - 01/28/2024 [facility] [address] [place] [address] [place] [address] Ultrasound Report Signed Patient: Michi Donovan#: [id number] : 1975Acct:[id number] Age/Sex: 48 / FADM Date: 01/28/24 Loc: HO.MAMMO Attending Dr: Milena Acevedo MD Ordering Physician: Milena Acevedo MD Date of Service: 01/28/24 Procedure(s): US breast BI limited mamm only Accession Number(s): [id number] cc: Milena Acevedo MD EXAMINATION: US DIAGNOSTIC ULTRASOUND BREAST, BILATERAL CLINICAL INFORMATION: Diagnostic exam; follow-up LEFT breast circumscribed oval masses superior and central breast retroareolar region posterior depth. Follow-up RIGHT circumscribed oval masses upper outer breast posterior depth, and superior breast middle depth on MLO view. COMPARISON: Mammography 12/17/2023, 12/21/2019, 07/13/2018, and 09/01/2016. TECHNIQUE: Ultrasound of the both breasts is performed with real-time matt scale imaging and color Doppler. The RIGHT breast was scanned from the 9:00 to the 3:00 axis, and the LEFT breast was also scanned from the 9:00 to the 3:00 axis to include the areas of mammographic concern. FINDINGS: Multiple bilateral circumscribed masses are by definition benign. -RIGHT breast shows numerous simple cysts, correlating with the mammographic foci. The largest measures 3.0 cm in diameter. -LEFT breast shows numerous grouped simple cysts present, the largest measuring 2.1 cm in diameter. There are no suspicious masses, suspicious cystic structures, abnormal shadowing, or areas of architectural alteration in either breast in the areas interrogated. US/US breast BI limited mamm only IMPRESSION: -There are no findings suspicious for malignancy. -Circumscribed oval masses in both breasts are by definition benign and correlate with multiple simple cysts in both breasts on ultrasound. These findings are benign and no further follow-up recommended. -Recommend the patient resume routine annual screening mammography in one year. ASSESSMENT: BI-RADS 2: Benign RECOMMENDATION: Routine annual mammography screening. This patient's information was entered into a reminder system with a target due date for their next mammogram. Electronically signed by: Guillermo Rush MD 01/28/2024 11:58 AM EST Dictated By: Guillermo Rush MD Signed By: <Electronically signed by Guillermo Rush MD in OV> 01/28/24 1158 DD/ 1100 TD/TT: 01/28/24 1120 Ship'S Engineer: us Milena Acevedo MD IMG US PROCEDURES Final Result * Hepatitis Panel, General (11/30/2023 9:21 AM EDT) Hepatitis A IgM Nonreactive Nonreactive [facility] Comment:IgM antibodies to GALVEZ V not detected; does not exclude earlyacute or recovered HAV infection. ~Hepatitis B Surface Antibody NONREACTIVE Nonreactive [facility] Comment:Nonreactive: < 8.00 mIU/mL Hepatitis B Core Antibody Nonreactive Nonreactive [facility] Hepatitis C Antibody Nonreactive Nonreactive [facility] Comment:Antibodies to HCV no t detected; does not exclude early acuteHCV infection. Hepatitis B Surface Ag Negative Negative [facility] Blood 11/30/2023 9:21 AM EDT 11/30/2023 11:26 AM EDT us Milena Acevedo MD LAB BLOOD ORDERABLES Fin al Result Performing Organization Address City/State/[facility] Co de Phone Number [facility] [address] [place] [phone] * Lipid Panel with Reflex to Direct LDL (11/30/2023 9:20 AM EDT) Triglycerides 67 <150 mg/dL [facility] Comment:Desirable Triglyceri de: less than 150 mg/dLBorderline High Triglyceride 150-199 mg/dLHigh Triglyceride: 200-499 mg/dLVery High Triglyceride: greater than or equal to 5OO mg/dL Cholesterol 150 <200 mg/dL [facility] Comment:Desirable Cholestero l: less than 200 mg/dLBorderline High Cholesterol: 200-239 mg/dLHigh Cholesterol: greater than 239 mg/dL LDL Cholesterol Calculated 93 <100 mg/dL [facility] Comment:Desirable LDL: less than 100 mg/dLNear Optimal/Above Optimal LDL: 110- 129 mg/dLBorderline High LDL: 130-159 mg/dLHigh LDL: 160-189 mg/dLVery High LDL: greater than or equal to 190 mg/dL HDL Cholesterol 44 >40 mg/dL [facility] Comment:Desirable HDL: great er than 40 mg/dL Note: This HDL assay may give artificially low results in patients with liver disease. Blood 11/30/2023 9:20 AM EDT 11/30/2023 11:26 AM EDT Milena Acevedo MD LAB BLOOD ORDERABLES Fin al Result [facility] [address] [place] [address] [phone] * HM PAP/HPV (09/29/2019 8:11 AM EDT) Pap Smear 1. NILM 1. NILM HPV Undetected Undetected, Indeterminate , Quantitative, Not Detected Historical Provider HEALTH MAINTENANCE Edited Result - Final from Last 3 Months or Most Recently Relevant to Health Maintenance Insurance [facility] Care Teams Learning Administrator Relationship Specialty Start Date End Date Milena Acevedo MD [address] [place] [phone] PCP - General Internal Medicine 11/25/23
--- OUTSIDE RECORDS SUMMARY | 2024-05-18 17:17 | XMS_ITS | Encounter Summary ---
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 on file Not on file Not on file documented as of this encounter Last Filed Vital Signs Vital Sign Reading Time Taken Comments Blood Pressure 135/94 05/12/2024 11:25 AM EST Pulse 92 05/12/2024 11:25 AM EST Temperature 36.4 ??C (97.5 ??F) 05/12/2024 1 1:25 AM EST Respiratory Rate 18 05/12/2024 11:2 5 AM EST Oxygen Saturation - - Inhaled Oxygen Concentration - - Weight 88.4 kg (194 lb 12.8 oz) 025 11:25 AM EST Height 167.6 cm (5' 6 ) 05/12/2024 11:2 5 AM EST Body Mass Index 31.44 05/12/2024 11:25 AM EST documented in this encounter Progress Notes * Milena Acevedo MD - 05/12/2024 11:15 AM EST SUBJECTIVE: Kylie Donovan is a 48 y.o. year old female who presents for follow up BP. Denies recent illness, injury, or hospitalization. Patient here for BP check, she is doing well, denies chest pain, exertional dyspnea, headache, dizziness. Her BP readings from home showed BP at 105-150/84-95. Acute Concerns: Complaining of temporary hives on hands and occasionally on thighs for the past 2 to 3 weeks that usually happen after taking hot showers. She has not had the symptoms before. She does not have angioedema, shortness of breath. Rash usually resolves within few hours. She has used different soaps with no change in symptoms, last time she had this rash was this morning. Social History Social History Narrative Not on file Patient Active Problem List Diagnosis Elevated blood pressure reading Adjustment disorder with depressed mood Abnormal mammogram of left breast Chronic pain of left knee History of cholecystectomy Chronic gastritis without bleeding Iron deficiency anemia Benign essential HTN Rash No family history on file. Review of Systems Constitutional: Negative for chills, fatigue and fever. HENT: Negative for congestion, ear pain, nosebleeds, rhinorrhea, sinus pressure, sore throat and trouble swallowing. Eyes: Negative for pain and discharge. Respiratory: Negative for cough, chest tightness and shortness of breath. Cardiovascular: Negative for chest pain, palpitations and leg swelling. Gastrointestinal: Negative for abdominal pain, blood in stool, constipation, diarrhea and nausea. Endocrine: Negative for polydipsia and polyuria. Genitourinary: Negative for dysuria, frequency, genital sores, pelvic pain and vaginal discharge. Musculoskeletal: Negative for back pain and neck pain. Skin: Positive for rash. Allergic/Immunologic: Negative for environmental allergies. Neurological: Negative for dizziness, seizures, weakness, light-headedness and headaches. Hematological: Negative for adenopathy. Psychiatric/Behavioral: Negative for agitation, behavioral problems, self-injury and suicidal ideas. OBJECTIVE: Vitals: 05/12/24 1125 BP: (!) 135/94 Pulse: 92 Resp: 18 Temp: 97.5 ??F (36.4 ??C) Physical Exam HENT: Right Ear: Tympanic membrane and ear canal normal. Left Ear: Tympanic membrane and ear canal normal. Mouth/Throat: Mouth: Mucous membranes are moist. Pharynx: No oropharyngeal exudate or posterior oropharyngeal erythema. Eyes: Pupils: Pupils are equal, round, and reactive to light. Cardiovascular: Rate and Rhythm: Regular rhythm. Pulses: Normal pulses. Heart sounds: Normal heart sounds. No murmur heard. Pulmonary: Breath sounds: Normal breath sounds. Abdominal: General: Bowel sounds are normal. Palpations: Abdomen is soft. Tenderness: There is no abdominal tenderness. Musculoskeletal: General: Normal range of motion. Cervical back: Neck supple. Skin: General: Skin is warm. Findings: Rash present. Rash is urticarial (2 small/less than 1 cm urticarial blebs on the right hand). Neurological: General: No focal deficit present. Mental Status: She is alert and oriented to person, place, and time. Psychiatric: Mood and Affect: Mood normal. Behavior: Behavior normal. Problem List Items Addressed This Visit Benign essential HTN - Primary New onset. Start low-dose lisinopril and follow-up with me in 4 to 6 weeks with BMP. We discussed about potential side effects including cough, rash or angioedema and hyperkalemia. Counseled re low salt diet/increase moderate physical activity. Check home BP BIW and prn CP/GALVEZ/SAEED Non smoking patient. Relevant Orders Basic Metabolic Panel Rash Very mild, no evidence of angioedema or generalized urticaria. Keep a symptom diary, recommended use of unscented Dove soap or Aveeno soap only. Start Zyrtec daily and follow-up with at next visit in 4 to 6 weeks Relevant Orders Basic Metabolic Panel Follow Up: Current Outpatient Medications on File Prior to Visit Medication Sig Dispense Refill Ascorbic Acid (vitamin C) 500 MG tablet Take 1 tablet (500 mg) by mouth Once per day. Take 1 tab podaily with breakfast and Iron pills 30 tablet 3 Blood Pressure Monitoring (Blood Pressure Cuff) misc Use daily as prescribed 1 each 0 ferrous gluconate (Fergon) 324 (38 Fe) MG tablet Take 1 tablet (324 mg) by mouth with breakfast. 30tablet 3 ibuprofen 800 MG tablet Take 1 tablet TID for 5-7 days, then every 8 hours as needed for pain or inflammation 30 tablet 0 Current Facility-Administered Medications on File Prior to Visit Medication Dose Route Frequency Provider Last Rate Last Admin lidocaine (Xylocaine) 2 % injection 20 mg 1 mL Injection Once Guille Posada MD documented in this encounter Miscellaneous Notes * Patient Education Note - Milena Acevedo MD - 05/12/2024 4:35 PM EST Images from the original note were not included. Patient Education Table of Contents Dieta mediterr?jaspreet (Mediterranean Diet) To view videos and all your education online visit, [email or web address] or scan this QR code with your smartphone. Access to this content will in one year. Dieta mediterr?jaspreet Mediterranean Diet La dieta mediterr?jaspreet se basa en las tradiciones de los pa?ses ubicados en las jose honorio Mediterr?barbara. Se centra en comer m?s: Frutas y verduras. Cereales integrales, frijoles, chun secos y semillas. Grasas cardiosaludables. Estas son grasas que son buenas para el coraz?n. Implica comer menos: Productos l?cteos. Carne y huevos. Alimentos procesados con az?car, laura y grasa agregadas. Reema tipo de dieta puede ayudar a prevenir ciertas afecciones. Tambi?n puede mejorar los resultadossi usted tiene rakel enfermedad a william plazo (cr?anthony), marquita rakel enfermedad renal o card?blanca. Consejos para seguir reema plan Al leer las etiquetas de los alimentos Revise los alimentos envasados para conocer lo siguiente: El kayy?o de la porci?n. En el armando del arroz y la pasta, el kayy?o de la porci?n es la cantidad dealimento cocido, no seco. Las grasas totales. Evite los alimentos que contienen grasas saturadas o grasas trans. Az?cares agregados, marquita el jarabe de ma?z. Al ir de compras Intente consumir rakel dieta equilibrada. Compre alimentos variados marquita, por ejemplo: ? Frutas y verduras frescas. Es posible que pueda obtenerlas en los mercados de agricultores locales. Tambi?n puede comprarlas congeladas. ? Cereales, frijoles, chun secos y semillas. Algunos de estos pueden comprarse a granel. ? Mariscos frescos. ? Aves y huevos. ? Productos l?cteos con bajo contenido de grasa. Compre ingredientes enteros en lugar de alimentos que ya hayan sido envasados. Si no puede conseguir mariscos frescos de buena calidad, compre camarones congelados precocidos o pescado en hussein, marquita at?n, salm?n o juan j. Surta carrasquillo despensa para tener siempre determinados productos a mano, por ejemplo, aceite de peña, at?n en hussein, tomates en hussein, arroz, pasta y frijoles. Al cocinar Cocine con aceite de peña extra colette en lugar de usar mantequilla u otros aceites vegetales. Coma la carne joshua marquita guarnici?n. Coma verduras o cereales marquita plato principal. [place] significa consumir porciones magdiel?as de carne o agregarla a la pasta o a los guisos en magdiel?as cantidades. Use frijoles o verduras en lugar de carne en platos comunes marquita chili o lasa?a. Pruebe diferentes m?todos de cocci?n. Intente asar, cocer al vapor y saltear verduras. Agregue verduras congeladas a sopas, guisos, pasta o arroz. Agregue chun secos o semillas para cubrir la porci?n de grasas saludables y prote?na vegetal en cada comida. Puede agregarlos a yogures, ensaladas o platos con verduras. Marine el pescado o las verduras con aceite de peña, jugo de vallejo?n, ajo y hierbas frescas. Planificaci?n de las comidas Planifique consumir rakel comida vegetariana un d?a a la semana. Si es posible, intente agregar hastados comidas vegetarianas. Coma mariscos dos o m?s veces por semana. Tenga a mano colaciones sanas. Pueden incluir: ? Bastones de verduras con humus. ? Yogur elli. ? Mezcla de chun secos y frutas. Consuma comidas equilibradas. Estas deber?an incluir: ? Fruta: 2 o 3?porciones por d?a. ? Verdura: 4 o 5?porciones por d?a. ? Productos l?cteos descremados: 2 porciones por d?a. ? Carne magra, de ave o de pescado: 1 porci?n por d?a. ? Frijoles y legumbres: 2 o m?s porciones por semana. ? Chun secos y semillas: 1 o 2 porciones por d?a. ? Cereales integrales: 6 a 8?porciones por d?a. ? Aceite de peña extra colette: 3 o 4 porciones por d?a. Limite las tami jay y los dulces a solo unas porciones al mes. Estilo de rafael Trate de cocinar y comer con carrasquillo hermilo. Fawn suficiente l?quido para mantener el pis (orina) de color amarillo p?lido. Mant?ngase f?sicamente activo todos los d?as. [place] incluye: ? Ejercicio aer?bico, que es el ejercicio que hace que el coraz?n hussein m?s r?pido. Por ejemplo, correr y nadar. ? Actividades recreativas, marquita jardiner?a, caminatas o tareas dom?sticas. Intente dormir de 7 a 8?horas todas las noches. Fawn vino tinto si el m?dico lo autoriza. Rakel copa de vino tiene 5?oz (150?ml). Es posible que le permitan joe: ? Hasta 1 copa por d?a si es lubna y no est?? embarazada. ? Hasta 2 copas por d?a si es hombre. ?Qu?? alimentos terri comer? Frutas Manzanas. Damascos. Aguacate. Bayas. Bananas. Cerezas. D?tiles. Higos. Uvas. Carolyn. Kathy?n. Naranjas. Duraznos. Ciruelas. Sawyer. Verduras Alcachofas. Remolachas. Br?coli. Repollo. Zanahorias. Berenjena. Wilmot?as verdes. Acelga. Col rizada.Espinaca. Cebollas. Puerro. Guisantes. Calabaza. Tomates. Pimientos. R?ana. Cereales Pastas integrales. Arroz integral. Karley burgol. Polenta. Cusc?s. Wilkinson integral. Kevin. Quinua. Tami y otras prote?kaia Frijoles. Almendras. Semillas de girasol. Pi?ones. Man?es. Bacalao. Salm?n. Vieiras. Camarones. At?n. Tilapia. Almejas. Ostras. Huevos. Anderson o pavo sin piel. L?cteos Leche con bajo contenido de grasa. Queso. Yogur elli. Grasas y aceites Aceite de peña extra colette. Aceite de aguacate. Aceite de semillas de uva. Bebidas Agua. Vino tinto. T?? de hierbas. Dulces y postres Yogur elli con miel. Manzanas asadas. Peras asadas. Mezcla de chun secos. Ali?os y condimentos Albahaca. Cilantro. Coriandro. Comino. Menta. Perejil. Salvia. Madrid. Estrag?n. [place]. Or?gano. Tomillo. Sj. Aceto bals?naina. Tahini. Hummus. Salsa de tomate. Sherwood. Hongos. Es posible que los productos que se enumeran m?s arriba no courtney todos los alimentos y las bebidas que puede consumir. Consulte a un nutricionista para obtener m?s informaci?n. ?Qu?? alimentos terri limitar? Esta es rakel lista de los alimentos que se deben comer con muy poca frecuencia. Frutas Frutas enlatadas con ericka?bar. Verduras Roldan fritas. Cereales Comidas con arroz o pasta envasados. Cereales con az?car agregado. Refrigerios con az?car agregada. Tami y otras prote?kaia Carne de alcira. Cerdo. Diggs. Anderson o pavo con piel. Perros calientes. Tocino. L?cteos Helados. Crema agria. Leche entera. Grasas y aceites Mantequilla. Aceite de canola. Aceite vegetal. Grasa de carne de res. Branscomb de cerdo. Bebidas Jugos. Refrescos endulzados con az?car. Cerveza. Licores y bebidas espirituosas. Dulces y postres Galletitas. Bizcochuelos. Pasteles. Caramelos. Ali?os y condimentos Mayonesa. Salsas y adobos listos para consumir. Es posible que los productos que se enumeran m?s arriba no courtney todos los alimentos y las bebidas que debe limitar. Consulte a un nutricionista para obtener m?s informaci?n. D?nde obtener m?s informaci?n Australian Heart Association (Asociaci?n Estadounidense del Coraz?n, AHA): heart.org Esta informaci?n no tiene marquita fin reemplazar el consejo del m?dico. Aseg?rese de hacerle al m?dicocualquier pregunta que tenga. Document Released: 2017-10-12 Document Updated: 2023-07-09 Document Reviewed: 2023-07-09 Elsevier Patient Education ? 2024 Elsevier Inc. * Assessment & Plan Note - Milena Acevedo MD - 05/12/2024 1:52 PM EST Associated Problem(s): Rash Very mild, no evidence of angioedema or generalized urticaria. Keep a symptom diary, recommended use of unscented Dove soap or Aveeno soap only. Start Zyrtec daily and follow-up with at next visit in 4 to 6 weeks * Assessment & Plan Note - Milena Acevedo MD - 05/12/2024 1:51 PM EST Associated Problem(s): Benign essential HTN New onset. Start low-dose lisinopril and follow-up with me in 4 to 6 weeks with BMP. We discussed about potential side effects including cough, rash or angioedema and hyperkalemia. Counseled re low salt diet/increase moderate physical activity. Check home BP BIW and prn CP/GALVEZ/SAEED Non smoking patient. documented in this encounter Plan of Treatment Upcoming Encounters Date Type Department Care Team (Late st Contact Info) Description 08/04/2024 12:00 PM EDT Office Visit [facility] MED[facility]INE [address] [place] [address] Milena Acevedo MD [address] [place] [address] Scheduled Orders Name Type Priority Associated Diagnoses Orde r Schedule Basic Metabolic Panel Lab Routine Benign essential HTN Rash Expected: 05/12/2024 (Approximate), Expires: 05/12/2025 documented as of this encounter Visit Diagnoses Diagnosis Benign essential HTN- Primary Rash Rash and other nonspecific skin eruption documented in this encounter Additional Health Concerns Assessment Noted Time PHQ-9 Depression Total Score: 1 11/25/19 24 3:06 PM EDT documented as of this encounter Care Teams Clinical Laboratory Aide Relationship Specialty Start Date End Date Milena Acevedo MD [address] [place] [phone] PCP - General Internal Medicine 11/25/23 documented as of this encounter
--- OUTSIDE RECORDS SUMMARY | 2024-05-18 17:17 | XMS_ITS | Encounter Summary ---
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 Not on file Not on file Not on file documented as of this encounter Plan of Treatment Upcoming Encounters Date Type Department Care Team (Late st Contact Info) Description 08/04/2024 12:00 PM EDT Office Visit [facility] MEDICINE [address] [place] [phone] Milena Acevedo MD [address] [place] [address] documented as of this encounter Visit Diagnoses Not on filedocumented in this encounter Additional Health Concerns Assessment Noted Time PHQ-9 Depression Total Score: 1 11/25/19 24 3:06 PM EDT documented as of this encounter Care Teams Remodeler Relationship Specialty Start Date End Date Milena Acevedo MD [address] [place] [phone] PCP - General Internal Medicine 11/25/23 documented as of this encounter
--- OUTSIDE RECORDS SUMMARY | 2024-05-18 17:17 | XMS_ITS | Encounter Summary ---
Author Organization [employer] Address [address] [facility] 7t [place] [address] Care Team Providers Care Lump Inspector Name Role Phone Milena Acevedo MD Primary Care Provider + Reason for Visit * Reason Onset Date Comments New Patient 01/07/2023 Encounter Details Date Type Department Care Team (Late st Contact Info) Description 01/07/[address] 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 EFFECTIVE SINCE 01/07/2023 documented in this encounter Plan of Treatment Upcoming Encounters Date Type Department Care Team (Late st Contact Info) Description 08/04/2024 12:00 PM EDT Office Visit [facility] [address] [place] [address] Milena Acevedo MD [address] [place] [address] documented as of this encounter Visit Diagnoses Not on filedocumented in this encounter Care Teams Lump Inspector Relationship Specialty Start Date End Date Milena Acevedo MD [address] [place] [address] PCP - General Internal Medicine 11/25/23 documented as of this encounter
--- OUTSIDE RECORDS SUMMARY | 2024-05-18 17:17 | XMS_ITS | Encounter Summary ---
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 Not on file Not on file documented as of this encounter Miscellaneous Notes * Telephone Encounter - Kassandra Cano MA - 05/10/2024 9:50 AM EST Chart Prep Labs: not done Images: done Vaccines due: yes Referrals: pending appt Screenings: colonoscopy Overdue care gaps: N/A documented in this encounter Plan of Treatment Upcoming Encounters Date Type Department Care Team (Late st Contact Info) Description 08/04/2024 12:00 PM EDT Office Visit [facility] MEDICINE [address] [place] [address] Milena Acevedo MD [address] [place] [address] documented as of this encounter Visit Diagnoses Not on filedocumented in this encounter Additional Health Concerns Assessment Noted Time PHQ-9 Depression Total Score: 1 11/25/19 24 3:06 PM EDT documented as of this encounter Care Teams Brush Washer Relationship Specialty Start Date End Date Milean Acevedo MD [address] [place] [phone] PCP - General Internal Medicine 11/25/23 documented as of this encounter
--- OUTSIDE RECORDS SUMMARY | 2024-05-18 17:17 | XMS_ITS | Encounter Summary ---
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 Not on file Not on file documented as of this encounter Plan of Treatment Upcoming Encounters Date Type Department Care Team (Late st Contact Info) Description 08/04/2024 12:00 PM EDT Office Visit [facility] MEDICINE [address] [place] [address] Milena Acevedo MD [address] [place] [address] documented as of this encounter Visit Diagnoses Not on filedocumented in this encounter Additional Health Concerns Assessment Noted Time PHQ-9 Depression Total Score: 1 11/25/19 24 3:06 PM EDT documented as of this encounter Care Teams Molder Hand Relationship Specialty Start Date End Date Milena Acevedo MD [address] [place] [phone] PCP - General Internal Medicine 11/25/23 documented as of this encounter
== END 2024-05-18 15:29 | disposition home or self-care (01) ==
LOC: HO.HGI 14:40
PROVIDERS: PCP Internal Medicine; Visit Provider Internal Medicine
DX: D64.9 Anemia, unspecified (principal); E61.1 Iron deficiency; K21.9 Gastro-esophageal reflux disease without esophagitis; N92.0 Excessive and frequent menstruation with regular cycle
CPT/HCPCS: 99204

== ENCOUNTER 2024-05-18 14:40 | Outpatient (REF) | payer OTHER, SELFPAY ==
[2024-05-18 15:52] LABS: Hematocrit 39.1 % (37.0-47.0); Hemoglobin 13.3 g/dl (12.0-16.0); Mean Corpuscular Hemoglobin 31.1 pg (27.0-33.0); Mean Corpuscular Volume 91.4 fL (80.0-98.0); Mean Platelet Volume 9.7 fL (9.4-12.3); Platelet Count 466 X10*3/uL (160-400); Red Blood Count 4.28 X10*6/uL (4.20-5.50); Red Cell Distribution Width 13.2 % (11.0-16.0); White Blood Count 9.8 X10*3/uL (4.8-10.8)
[2024-05-18 16:21] LABS: Iron 67 mcg/dL (30-160); Percent Iron Saturation 19 % (15-50); Total Iron Binding Capacity 353 mcg/dL (228-428); Unsaturated Iron Binding 286 ug/dL
[2024-05-18 16:35] LABS: Ferritin 28 ng/mL (10-250)
[2024-05-18 16:49] LABS: Folate 14.1 ng/mL (> or = 4.0); Vitamin B12 307 pg/mL (200-900)
--- OUTSIDE RECORDS SUMMARY | 2024-05-18 18:01 | XMS_ITS | Encounter Summary ---
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 EFFECTIVE SINCE 01/07/2023 documented in this encounter Plan of Treatment Upcoming Encounters Date Type Department Care Team (Late st Contact Info) Description 08/04/2024 12:00 PM EDT Office Visit [facility] MEDICINE [address] [place] [address] Milena Acevedo MD [address] [place] [address] documented as of this encounter Visit Diagnoses Not on filedocumented in this encounter Care Teams Household Cook Relationship Specialty Start Date End Date Milena Acevedo MD [address] [place] [address] PCP - General Internal Medicine 11/25/23 documented as of this encounter
--- OUTSIDE RECORDS SUMMARY | 2024-05-18 18:01 | XMS_ITS | Encounter Summary ---
Author Organization [employer] Address [address] [facility] [address]t [place] [address] Care Team Providers Care Rocket Engine Component Mechanic Name Role Phone Mielna Acevedo MD Primary Care Provider + Reason for Visit * Reason Onset Date Comments Chart prep 05/10/2024 Encounter Details Date Type Department Care Team ([facility] st Contact Info) Description 05/10/2024 Telephone [facility] [address] [place], [place] [phone] Milena Acevedo MD [address] [place], [place] [phone] Chart prep Social History Tobacco Use Types [...] 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 Not on file Not [...] Description 08/04/2024 12:00 PM EDT Office Visit [facility] [address] [place] [address] Milena Acevedo MD [address] [place] [address] documented as of this encounter Visit Diagnoses Not on filedocumented in this encounter Additional Health Concerns Assessment Noted Time PHQ-9 Depression Total Score: 1 11/25/19 24 3:06 PM EDT documented as of this encounter Care Teams Rocket Engine Component Mechanic Relationship Specialty Start Date End Date Milena Acevedo MD [address] [place] [address] PCP - General Internal Medicine 11/25/23 documented as of this encounter
--- OUTSIDE RECORDS SUMMARY | 2024-05-18 18:01 | XMS_ITS | Encounter Summary ---
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 Not on file Not on file documented as of this encounter Plan of Treatment Upcoming Encounters Date Type Department Care Team (Late st Contact Info) Description 08/04/2024 12:00 PM EDT Office Visit [facility] [address] [place] [address] Milena Acevedo MD [address] [place] [address] documented as of this encounter Visit Diagnoses Not on filedocumented in this encounter Additional Health Concerns Assessment Noted Time PHQ-9 Depression Total Score: 1 11/25/19 24 3:06 PM EDT documented as of this encounter Care Teams Java Web Developer Relationship Specialty Start Date End Date Milena Acevedo MD [address] [place] [phone] PCP - General Internal Medicine 11/25/23 documented as of this encounter
--- OUTSIDE RECORDS SUMMARY | 2024-05-18 18:02 | XMS_ITS | Encounter Summary ---
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 file Not on file Not on file documented as of this encounter Plan of Treatment Upcoming Encounters Date Type Department Care Team (Late st Contact Info) Description 08/04/2024 12:00 PM EDT Office Visit [facility] [address] [place] [address] Milena Acevedo MD [address] [place] [address] documented as of this encounter Visit Diagnoses Not on filedocumented in this encounter Additional Health Concerns Assessment Noted Time PHQ-9 Depression Total Score: 1 11/25/19 24 3:06 PM EDT documented as of this encounter Care Teams Space Controller Relationship Specialty Start Date End Date Milena Acevedo MD [address] [place] [phone] PCP - General Internal Medicine 11/25/23 documented as of this encounter
--- OUTSIDE RECORDS SUMMARY | 2024-05-18 18:02 | XMS_ITS | Encounter Summary ---
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 Not on file Not on file documented as of this encounter Plan of Treatment Upcoming Encounters Date Type Department Care Team ([facility] st Contact Info) Description 08/04/2024 12:00 PM EDT Office Visit [facility] [address] [place], [place] [phone] Milena Acevedo MD [address] [place], [place] [phone] documented as of this encounter Procedures Procedure [...] Vitamin B12 307 200 - 900 pg/mL [facility] Comment:NORMAL 200-900 PG/ML INDETERMINATE 160-199 PG/ML DEFICIENT < 160 PG/ML Folate 14.1 > or = 4.0 ng/mL [facility] Comment:Reference Values:> o r = 4.0 ng/mL< 4.0 ng/mL suggests folate deficiency Methotrexate, aminopterin and folinic acid(leucovorin) are chemotherapeutic agents whose molecularstructures are similar to folate; therefore, the Architectfolate assay cannot be used for patients using these drugs. 05/18/2024 3:29 PM EDT 05/18/2024 3:29 PM EDT Generic External Data Provider LAB BLOOD ORDERAB LES Final Result Performing Organization Address [facility] Co de Phone Number [facility] [address] [place] [phone] * Ferritin (05/18/2024 3:29 PM EDT) Ferritin 28 10 - 250 ng/mL [facility] 05/18/2024 3:29 PM EDT 05/18/2024 3:29 PM EDT Generic External Data Provider LAB BLOOD ORDERAB LES Final Result Performing Organization Address [facility] de Phone Number [facility] [address] [place] [phone] * Iron And Total Iron Binding Capacity (05/18/2024 3:29 PM EDT) Pathologist [facility] Iron 67 30 - 160 mcg/dL [facility] Total Iron Binding Capacity 353 228 - 428 mcg/dL [facility] Percent Iron Saturation 19 15 - 50 % [facility] Unsaturated Iron Binding 286 ug/dL [facility] 05/18/2024 3:29 PM EDT 05/18/2024 3:29 PM EDT Generic External Data Provider LAB BLOOD ORDERAB LES Final Result Performing Organization Address [facility] Co de Phone Number [facility] [address] [place] [phone] * (ABNORMAL) CBC (05/18/2024 3:29 PM EDT) White Blood Count 9.8 4.8 - 10.8 X10*3/uL [facility] Red Blood Count 4.28 4.20 - 5.50 X10*6/uL [facility] Hemoglobin 13.3 12.0 - 16.0 g/dl [facility] Hematocrit 39.1 37.0 - 47.0 % [facility] Mean Corpuscular Volume 91.4 80.0 - 98.0 fL [facility] Mean Corpuscular Hemoglobin 31.1 27.0 - 33.0 pg [facility] Mean Corpuscular HGB Conc 34.0 31.0 - 35.0 g/dl [facility] Red Cell Distribution Width 13.2 11.0 - 16.0 % [facility] Platelet Count 466(H) 160 - 400 X10*3/uL [facility] Mean Platelet Volume 9.7 9.4 - 12.3 fL [facility] NRBC Pct Auto 0.0 0.0 - 0.2 /100WBC [facility] NRBC Abs Auto 0.000 0.0 - 0.012 X10*3/uL [facility] 05/18/2024 3:29 PM EDT 05/18/2024 3:29 PM EDT us Generic External Data Provider LAB BLOOD ORDERAB LES Final Result Performing Organization Address City/State/[facility] Co de Phone Number [facility] [address] [place] [phone] documented in this encounter Visit Diagnoses Not on filedocumented in this encounter Additional Health Concerns Assessment Noted Time PHQ-9 Depression Total Score: 1 11/25/19 24 3:06 PM EDT documented as of this encounter Care Teams Vertical Mill Operator Relationship Specialty Start Date End Date Milena Acevedo MD [address] [place] [phone] PCP - General Internal Medicine 11/25/23 documented as of this encounter
--- OUTSIDE RECORDS SUMMARY | 2024-05-18 18:02 | XMS_ITS | Clinical Summary ---
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 monitor and refer [...] Data 05/12/2024 11:15 AM EST Office Visit [facility]ICINE [address] [place] [phone] Milena Acevedo MD Benign essential HTN (Primary Dx); Rash 05/12/2024 Travel 05/11/2024 Travel 05/10/2024 Telephone [facility] [address] [place] [phone] Milena Acevedo MD Chart prep 03/17/2024 1:00 PM EST Office Visit [facility] OPTOMETRY [address] [place] [address] TarkaRhiannon, OD Myopia, bilateral (Primary Dx); Dry eyes, bilateral 03/17/2024 Telephone [facility] MEDICINE [address] [place] [address] Milena Acevedo MD Lab Orders 03/17/2024 Travel 03/16/2024 Travel 03/08/2024 Telephone [facility]INE [address] [place] [address] Carole Lomeli, administrative manager Orders 03/07/2024 9:00 AM EST Office Visit [address] [address] Milena Acevedo MD Elevated blood pressure reading (Primary Dx); Other chronic gastritis without hemorrhage; Other iron deficiency anemia; Screening for colorectal cancer 03/07/2024 Travel 03/06/2024 Travel 03/04/2024 Telephone [facility]ICINE [address] [place] [address] Kassandra Cano MA Chart prep 02/25/2024 Patient Outreach [facility] [address] [place] [address] Milena Acevedo MD Pre-visit Planning (LVM) from [...] 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 Not on file Not [...] Description 08/04/2024 12:00 PM EDT Office Visit [facility] [address] [place] [address] Milena Acevedo MD [address] [place] [address] Health Maintenance Due Date Last Done Comments [...] Vitamin B12 307 200 - 900 pg/mL [facility] Comment:NORMAL 200-900 PG/ML INDETERMINATE 160-199 PG/ML DEFICIENT < 160 PG/ML Folate 14.1 > or = 4.0 ng/mL [facility] Comment:Reference Values:> o r = 4.0 ng/mL< 4.0 ng/mL suggests folate deficiency Methotrexate, aminopterin and folinic acid(leucovorin) are chemotherapeutic agents whose molecularstructures are similar to folate; therefore, the Architectfolate assay cannot be used for patients using these drugs. 05/18/2024 3:29 PM EDT 05/18/2024 3:29 PM EDT us Generic External Data Provider LAB BLOOD ORDERAB LES Final Result [facility] [address] [place] [phone] * Iron And Total Iron Binding Capacity (05/18/2024 3:29 PM EDT) Iron 67 30 - 160 mcg/dL [facility] Total Iron Binding Capacity 353 228 - 428 mcg/dL [facility] Percent Iron Saturation 19 15 - 50 % [facility] Unsaturated Iron Binding 286 ug/dL [facility] 05/18/2024 3:29 PM EDT 05/18/2024 3:29 PM EDT us Generic External Data Provider LAB BLOOD ORDERAB LES Final Result Performing Organization Address City/[facility]/ZIP Co de Phone Number [facility] [address] [place] [phone] * (ABNORMAL) CBC (05/18/2024 3:29 PM EDT) White Blood Count 9.8 4.8 - 10.8 X10*3/uL [facility] Red Blood Count 4.28 4.20 - 5.50 X10*6/uL [facility] Hemoglobin 13.3 12.0 - 16.0 g/dl [facility] Hematocrit 39.1 37.0 - 47.0 % [facility] Mean Corpuscular Volume 91.4 80.0 - 98.0 fL [facility] Mean Corpuscular Hemoglobin 31.1 27.0 - 33.0 pg [facility] Mean Corpuscular HGB Conc 34.0 31.0 - 35.0 g/dl [facility] Red Cell Distribution Width 13.2 11.0 - 16.0 % [facility] Platelet Count 466(H) 160 - 400 X10*3/uL [facility] Mean Platelet Volume 9.7 9.4 - 12.3 fL [facility] NRBC Pct Auto 0.0 0.0 - 0.2 /100WBC [facility] NRBC Abs Auto 0.000 0.0 - 0.012 X10*3/uL [facility] 05/18/2024 3:29 PM EDT 05/18/2024 3:29 PM EDT us Generic External Data Provider LAB BLOOD ORDERAB LES Final Result Performing Organization Address City/[facility]/ZIP Co de Phone Number [facility] [address] [place] [phone] * Ferritin (05/18/2024 3:29 PM EDT) Ferritin 28 10 - 250 ng/mL [facility] 05/18/2024 3:29 PM EDT 05/18/2024 3:29 PM EDT us Generic External Data Provider LAB BLOOD ORDERAB LES Final Result [facility] [address] [facility] [place] [address] [phone] * BI US Breast Limited Bilateral (01/28/2024 11:00 AM EST) Anatomical Region Laterality Modality Breast Bilateral Ultrasound 01/28/2024 11:0 0 AM EST Narrative 01/28/2024 12:01 PM EST ? [facility] ? [address] ?[place] [address] ? Ultrasound Report ? Signed ? Patient: Donovan,Kylie ?MR#: [id number] ? : 1975 ?Acct:[id number] ? Age/Sex: 48 / F ?ADM Date: 01/28/24 ? Loc: HO.MAMMO ? Attending Dr: Milena Acevedo MD ? Ordering Physician: Milena Acevedo MD ?? Date of Service: 01/28/24 ?? Procedure(s): US breast BI limited mamm only ?? Accession Number(s): [id number] ? cc: Milena Acevedo MD ? EXAMINATION: [...] DD/ 1100 ? TD/TT: 01/28/24 1120 ? Prefitter: ? Procedure Note Nahum, Image - 01/28/2024 [facility] [address] [place] [address] [place] [address] Ultrasound Report Signed Patient: Michi Donovan#: [id number] : 1975Acct:[id number] Age/Sex: 48 / FADM Date: 01/28/24 Loc: HO.MAMMO Attending Dr: Milena Acevedo MD Ordering Physician: Milena Acevedo MD Date of Service: 01/28/24 Procedure(s): US breast BI limited mamm only Accession Number(s): [id number] cc: Milena Acevedo MD EXAMINATION: US DIAGNOSTIC [...] 01/28/24 1158 DD/ 1100 TD/TT: 01/28/24 1120 Prefitter: us Milena Acevedo MD IMG US PROCEDURES Final Result * Hepatitis Panel, General (11/30/2023 9:21 AM EDT) Hepatitis A IgM Nonreactive Nonreactive [facility] Comment:IgM antibodies to GALVEZ V not detected; does not exclude earlyacute or recovered HAV infection. ~Hepatitis B Surface Antibody NONREACTIVE Nonreactive [facility] Comment:Nonreactive: < 8.00 mIU/mL Hepatitis B Core Antibody Nonreactive Nonreactive [facility] Hepatitis C Antibody Nonreactive Nonreactive [facility] Comment:Antibodies to HCV no t detected; does not exclude early acuteHCV infection. Hepatitis B Surface Ag Negative Negative [facility] Blood 11/30/2023 9:21 AM EDT 11/30/2023 11:26 AM EDT us Milena Acevedo MD LAB BLOOD ORDERABLES Fin al Result Performing Organization Address City/State/[facility] Co de Phone Number [facility] [address] [place] [phone] * Lipid Panel with Reflex to Direct LDL (11/30/2023 9:20 AM EDT) Triglycerides 67 <150 mg/dL [facility] Comment:Desirable Triglyceri de: less than 150 mg/dLBorderline High Triglyceride 150-199 mg/dLHigh Triglyceride: 200-499 mg/dLVery High Triglyceride: greater than or equal to 5OO mg/dL Cholesterol 150 <200 mg/dL [facility] Comment:Desirable Cholestero l: less than 200 mg/dLBorderline High Cholesterol: 200-239 mg/dLHigh Cholesterol: greater than 239 mg/dL LDL Cholesterol Calculated 93 <100 mg/dL [facility] Comment:Desirable LDL: less than 100 mg/dLNear Optimal/Above Optimal LDL: 110- 129 mg/dLBorderline High LDL: 130-159 mg/dLHigh LDL: 160-189 mg/dLVery High LDL: greater than or equal to 190 mg/dL HDL Cholesterol 44 >40 mg/dL [facility] Comment:Desirable HDL: great er than 40 mg/dL Note: This HDL assay may give artificially low results in patients with liver disease. Blood 11/30/2023 9:20 AM EDT 11/30/2023 11:26 AM EDT Milena Acevedo MD LAB BLOOD ORDERABLES Fin al Result [facility] [address] [place] [phone] * HM PAP/HPV (09/29/2019 8:11 AM EDT) Pap Smear 1. NILM 1. NILM HPV Undetected Undetected, Indeterminate , Quantitative, Not Detected Historical Provider HEALTH MAINTENANCE Edited Result - Final from Last 3 Months or Most Recently Relevant to Health Maintenance Insurance [facility] Care Teams Client Technical Support Associate Relationship Specialty Start Date End Date Milena Acevedo MD [address] [place] [phone] PCP - General Internal Medicine 11/25/23
--- OUTSIDE RECORDS SUMMARY | 2024-05-18 18:02 | XMS_ITS | Encounter Summary ---
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 Not on file Not on file documented as of this encounter Plan of Treatment Upcoming Encounters Date Type Department Care Team (Late st Contact Info) Description 08/04/2024 12:00 PM EDT Office Visit [facility] [address] [place] [address] [phone] Milena Acevedo MD [address] [place] [phone] documented as of this encounter Procedures Procedure [...] documented as of this encounter Care Teams Nuclear Engineering Technician Relationship Specialty Start Date End Date Milena Acevedo MD [address] [place] [address] [phone] PCP - General Internal Medicine 11/25/23 documented as of this encounter
--- OUTSIDE RECORDS SUMMARY | 2024-05-18 18:02 | XMS_ITS | Encounter Summary ---
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 Compre alimentos variados maruqita, por ejemplo: ? Frutas y verduras frescas. [...] Coma verduras o cereales marquita plato principal. [place] significa consumir porciones magdiel?as de carne o [...] p?lido. Mant?ngase f?sicamente activo todos los d?as. [place] incluye: ? Ejercicio aer?bico, que es el [...] Higos. Uvas. Carolyn. Kathy?n. Naranjas. Duraznos. Ciruelas. Aberdeen. Verduras Alcachofas. Remolachas. Br?coli. Repollo. Zanahorias. Berenjena. [place]?as verdes. Acelga. Col rizada.Espinaca. Cebollas. Puerro. Guisantes. [...] Coriandro. Comino. Menta. Perejil. Salvia. Madrid. Estrag?n. Austin. Or?gano. Tomillo. Sj. Aceto bals?naina. Tahini. Hummus. Salsa de tomate. [place]. Hongos. Es posible que los productos que [...] Aceite vegetal. Grasa de carne de res. [place] de cerdo. Bebidas Jugos. Refrescos endulzados con az?car. Cerveza. Licores y bebidas espirituosas. Dulces y postres Galletitas. Bizcochuelos. Pasteles. Caramelos. Ali?os y condimentos Mayonesa. Salsas y adobos listos para consumir. Es posible que los productos que se enumeran m?s arriba no courtney todos los alimentos y las bebidas que debe limitar. Consulte a un nutricionista para obtener m?s informaci?n. D?nde obtener m?s informaci?n [employer] (Asociaci?n Estadounidense del Coraz?n, AHA): [...] Description 08/04/2024 12:00 PM EDT Office Visit [facility] [address] [place] [address] Milena Acevedo MD [address] [place] [address] Scheduled Orders Name Type Priority Associated Diagnoses [...] documented as of this encounter Care Teams Sales Support Rep Relationship Specialty Start Date End Date Milena Acevedo MD [address] [place] [phone] PCP - General Internal Medicine 11/25/23 documented as of this encounter
[2024-05-19 16:09] LABS: Transglutaminase IgA <1.0 U/mL
[2024-05-19 18:58] LABS: Immunoglobulin A 238 mg/dL (47-310)
== END 2024-05-18 14:41 | disposition home or self-care (01) ==
LOC: HO.LAB 14:40
PROVIDERS: PCP Internal Medicine; Visit Provider Internal Medicine
DX: K21.9 Gastro-esophageal reflux disease without esophagitis (principal); E61.1 Iron deficiency; N92.0 Excessive and frequent menstruation with regular cycle
CPT/HCPCS: 36415; 82607; 82728; 82746; 82784; 83540; 85027; 86364; 99202

== ENCOUNTER 2024-08-09 16:09 | Outpatient (REF) | payer OTHER, SELFPAY ==
--- OUTSIDE RECORDS SUMMARY | 2024-08-09 17:09 | XMS_ITS | Encounter Summary ---
Author Organization [employer] Address [address] [facility] 7[address] [place] [address] Care Team Providers Care Orthodontic Technician Assistant Name Role Phone Milena Acevedo MD Primary Care Provider + Reason for Visit * Reason Comments Follow-up Encounter Details Date Type Department Care Team ([facility] Contact Info) Description 08/04/2024 12:00 PM EDT Office Visit [facility] [address], [place] [phone] Milena Acevedo MD [address] [place], [place] [phone] Benign essential HTN (Primary Dx) Social History Tobacco Use Types Packs/Day Years [...] 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 Not on file Not on file documented as of this encounter Last Filed Vital Signs Vital Sign Reading Time Taken Comments Blood Pressure 160/100 08/04/2024 12:26 PM EDT Pulse 92 08/04/2024 12:07 PM EDT Temperature 36.4 ??C (97.5 ??F) 08/04/2024 12:07 PM E DT Respiratory Rate 16 08/04/2024 12:07 PM EDT Oxygen Saturation - - Inhaled Oxygen Concentration - - Weight 88.1 kg (194 lb 2 oz) 08/04/2024 12:07 PM EDT Height 167.6 cm (5' 6 ) 08/04/2024 12:07 PM EDT Body Mass Index 31.33 08/04/2024 12:07 PM EDT documented in this encounter Progress Notes * Milena Acevedo MD - 08/04/2024 12:00 PM EDT SUBJECTIVE: Kylie Donovan is a 49 y.o. year old female who presents for follow up bp/labs. Denies recent illness, injury, or hospitalization. She's not taking lisinopril regularly. Denies exertional CP, SAEED, leg edema. Labs on 05/18/2024 showed improving hemoglobin from 10-13, normal iron studies, B12, TTA a antibodies and IgA. Acute Concerns: Social History Social History Narrative Not on file Problem List[1] Family History[2] Review of Systems Constitutional: Negative for chills, [...] for back pain and neck pain. Skin: Negative for rash. Allergic/Immunologic: Negative for environmental allergies. Neurological: Negative for dizziness, seizures, weakness, light-headedness and headaches. Hematological: Negative for adenopathy. Psychiatric/Behavioral: Negative for agitation, behavioral problems, self-injury and suicidal ideas. OBJECTIVE: Vitals: 08/04/24 1207 08/04/24 1226 BP: (!) 166/118 (!) 160/100 BP Location: Left arm Right arm Patient Position: Sitting Lying BP Cuff Size: Adult Adult Pulse: 92 Resp: 16 Temp: 97.5 ??F (36.4 ??C) TempSrc: Temporal Weight: 194 lb 2 oz (88.1 kg) Height: 5' 6 (1.676 m) Physical Exam HENT: Right Ear: Tympanic membrane [...] Neck supple. Skin: General: Skin is warm. Neurological: General: No focal deficit present. Mental Status: She is alert and oriented to person, place, and time. Psychiatric: Mood and Affect: Mood normal. Behavior: Behavior normal. Encounter Date: 08/04/24 ECG 12 lead Narrative NSR at 82 bpm, normal axis. No ST/T abnormalities. No ischemic changes. Normal EKG Problem List Items Addressed This Visit Benign essential HTN - Primary Uncontrolled today, noncompliant with lisinopril, she had tolerated well. Increase lisinopril to 5 mg/d We discussed the importance of taking medications daily and and complication from uncontrolled hypertension including ischemic cardiovascular disease, CHF etc. Counseled re low salt diet/increase moderate physical activity. Check home BP BIW and prn CP/GALVEZ/SAEED Non smoking patient. Follow-up BP with RN in 2 to 3 weeks and with me in 4 to 6 weeks. Relevant Medications lisinopril 5 MG tablet Other Relevant Orders Basic Metabolic Panel ECG 12 lead (Completed) Follow Up: Medications Ordered Prior to Encounter[3] [1] Patient Active Problem List Diagnosis Adjustment disorder with depressed mood Abnormal mammogram of left breast Chronic pain of left knee History of cholecystectomy Chronic gastritis without bleeding Iron deficiency anemia Benign essential HTN Rash [2] No family history on file. [3] Current Outpatient Medications on File Prior to [...] mg) by mouth with breakfast. 30tablet 3 [DISCONTINUED] cetirizine (ZyrTEC) 10 MG tablet Take 1 tablet (10 mg) by mouth Once per day. 30 tablet 2 [DISCONTINUED] ibuprofen 800 MG tablet Take 1 tablet TID for 5-7 days, then every 8 hours as neededfor pain or inflammation 30 tablet 0 [DISCONTINUED] lisinopril 2.5 MG tablet Take 1 tablet (2.5 mg) by mouth Once per day. 30 tablet 11 Current Facility-Administered Medications on File Prior to Visit Medication Dose Route Frequency Provider Last Rate Last Admin lidocaine (Xylocaine) 2 % injection 20 mg 1 mL Injection Once Guille Posada MD documented in this encounter Miscellaneous Notes * Assessment & Plan Note - Milena Acevedo MD - 08/04/2024 2:20 PM EDT Associated Problem(s): Benign essential HTN Uncontrolled today, noncompliant with lisinopril, she had tolerated well. Increase lisinopril to 5 mg/d We discussed the importance of taking medications daily and and complication from uncontrolled hypertension including ischemic cardiovascular disease, CHF etc. Counseled re low salt diet/increase moderate physical activity. Check home BP BIW and prn CP/GALVEZ/SAEED Non smoking patient. Follow-up BP with RN in 2 to 3 weeks and with me in 4 to 6 weeks. documented in this encounter Plan of Treatment Upcoming Encounters Date Type Department Care Team (Late st Contact Info) Description 08/29/2024 10:30 AM EDT Clinical Support [facility] [address] [place] [phone] Scheduled Orders Name Type Priority Associated Diagnoses Orde r Schedule Basic Metabolic Panel Lab Routine Benign essential HTN Expected: 08/04/2024 (Approximate), Expires: 08/04/2025 documented as of this encounter Procedures Procedure Name Priority Date/Time Associated Diagnosis Comments ECG 12-LEAD Routine 08/04/2024 2:18 PM EDT Benign essential HTN documented in this encounter Results * ECG 12 lead (08/04/2024 2:18 PM EDT) Narrative Milena Acevedo MD - 08/04/2024 2:18 PM EDT NSR at 82 bpm, normal axis. ??No ST/T abnormalities. ??No ischemic changes. Normal EKG us Milena Acevedo MD ECG ORDERABLES Final Re sult documented in this encounter Visit Diagnoses Diagnosis Benign essential HTN- Primary documented in this encounter Additional Health Concerns Assessment Noted Time PHQ-9 Depression Total Score: 1 11/25/19 24 3:06 PM EDT documented as of this encounter Care Teams Orthodontic Technician Assistant Relationship Specialty Start Date End Date Milena Acevedo MD [address] [place] [phone] PCP - General Internal Medicine 11/25/23 documented as of this encounter
[2024-08-09 17:44] LABS: Anion Gap 10 (12-20); Blood Urea Nitrogen 10 mg/dL (9-16); Carbon Dioxide 28 mmol/L (22-29); Chloride 105 mmol/L (96-108); Estimated Glomerular Filt Rate > 60; Glucose Random 107 mg/dL (60-115); Potassium 3.3 mmol/L (3.3-5.1); Sodium 140 mmol/L (135-145)
== END 2024-08-09 16:10 | disposition home or self-care (01) ==
LOC: HO.HHCL 16:09
PROVIDERS: Visit Provider Internal Medicine
DX: I10 Essential (primary) hypertension (principal)
CPT/HCPCS: 36415; 80048

== ENCOUNTER 2024-11-17 09:58 | Outpatient (REF) | payer OTHER, SELFPAY ==
--- OUTSIDE RECORDS SUMMARY | 2024-11-17 11:58 | XMS_ITS | Encounter Summary ---
Author Organization [employer] Address [address] [place] [address] 7[address] [place] [address] Care Team Providers Care Lay Out And Detail Drafter Name Role Phone Milena Acevedo MD Primary Care Provider + Reason for Visit * Reason Onset Date Comments New Patient 01/07/2023 Encounter Details Date Type Department Care Team (Late st Contact Info) Description 01/07/2023 Telephone [facility] [address] [place] [address] [phone] Arpit Dawson MD [address] [place] [phone] New Patient Social History Tobacco Use Types [...] been transfer over to wait list for CHIEF ADMINISTRATIVE OFFICER. EFFECTIVE SINCE 01/07/2023 documented in this encounter Plan of Treatment Upcoming Encounters Date Type Department Care Team (Late st Contact Info) Description 11/23/2024 10:30 AM EDT Clinical Support [facility] [address] [place] [address] 01/26/2025 10:30 AM EST Office Visit [facility] [address] [place] [address] Milena Aecvedo MD [address] [place] [address] documented as of this encounter Visit Diagnoses Not on filedocumented in this encounter Care Teams Lay Out And Detail Drafter Relationship Specialty Start Date End Date Milena Acevedo MD [address] [place] [phone] PCP - General Internal Medicine 11/25/23 documented as of this encounter
--- OUTSIDE RECORDS SUMMARY | 2024-11-17 11:58 | XMS_ITS | Encounter Summary ---
Author Organization [employer] Address [address] [facility] [address] 7[address] [place] [address] Care Team Providers Care Tube Carrier Name Role Phone Milena Acevedo MD Primary Care Provider + Encounter Details Date Type Department Care Team (Latest Contact Info) Description 11/16/2024 Travel Social History Tobacco Use Types Packs/Day Years Used Date Smoking Tobacco: Never Passive Smoke Exposure: Never Smokeless Tobacco: Never Alcohol Use Standard Drinks/Week Comments Never 0 (1 standard drink = 0.6 oz pur e alcohol) Depression Answer Date Recorded Patient Health Questionnaire-9 Score 1 11/10/2024 Patient Health Questionnaire-9 Score 1 11/10/2024 Last PHQ-9: Questionnaire Data Not on file 0 11/10/2024 Housing Stability Answer Date Recorded What is [...] Date Recorded Patient Health Questionnaire-2 Score 1 11/10/2024 Internet Access Answer Date Recorded Internet Access Q1 Yes 11/10/2024 Internet Access Q2 I do not want or need it 06/2024 Comments No Sex and Gender Information Value Date Recorded Sex Assigned at Female 07/15/2023 10:48 AM EDT Legal Sex Female 4:13 PM EDT Gender Identity Female 07/15/2023 10:48 AM EDT Sexual Orientation Straight 11/18/2023 9: 34 AM EDT 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 on file Not on file Not on file documented as of this encounter Plan of Treatment Upcoming Encounters Date Type Department Care Team (Late st Contact Info) Description 11/23/2024 10:30 AM EDT Clinical Support [address] [phone] 01/26/2025 10:30 AM EST Office Visit [address] [address] Milena Acevedo MD [address] [place] [phone] documented as of this encounter Visit Diagnoses Not on filedocumented in this encounter Additional Health Concerns Assessment Noted Time PHQ-9 Depression Total Score: 1 11/11/19 25 11:35 AM EDT documented as of this encounter Care Teams Tube Carrier Relationship Specialty Start Date End Date Milena Acevedo MD [address] [place] [phone] PCP - General Internal Medicine 11/25/23 documented as of this encounter
--- OUTSIDE RECORDS SUMMARY | 2024-11-17 11:58 | XMS_ITS | Clinical Summary ---
Author Organization [employer] Address [address] [facility] 7t [place] [address] Care Team Providers Care Extractions Technologist Name Role Phone Milena Acevedo MD Primary Care Provider + Allergies Active Allergy Reactions Criticality Noted Date Comments Gramineae Pollens 07/15/2023 Medications ferrous gluconate (Fergon) 324 (38 Fe) MG tablet Take 1 tablet (324 mg) by mouth with breakfast. 30 tablet 3 12/23/19 24 025 Active Ascorbic Acid (vitamin C) 500 MG tablet Take 1 tablet (500 mg) by mouth Once per day. Take 1 tab po daily with breakfast and Iron pills 30 tablet 3 12/23/19 24 025 Active Blood Pressure Monitoring (Blood Pressure Cuff) misc Use daily as prescribed 1 each 03/07/20 24 Active cetirizine (ZyrTEC) 10 MG tablet TAKE 1 TABLET BY MOUTH ONCE DAILY 30 tablet 2 11/09/19 25 Active medroxyPROGEST ERone (Depo-Provera) 150 MG/ML injection Inject 1 mL (150 mg) into the muscle every 3 (three) months. 1 mL 3 11/11/19 25 Active lisinopril 10 MG tablet Take 1 tablet (10 mg) by mouth Once per day. 90 tablet 1 11/11/19 25 026 Active lisinopril 5 MG tablet Take 1 tablet (5 mg) by mouth Once per day. 90 tablet 1 08/05/19 25 025 Discontinued(Re order (will not trigger notification to Pharmacy)) cetirizine (ZyrTEC) 10 MG tablet Take 1 tablet (10 mg) by mouth Once per day. 30 tablet 2 08/05/19 25 025 Discontinued lisinopril 5 MG tablet Take 2 tablets (10 mg) by mouth Once per day. 90 tablet 1 11/11/19 25 025 Discontinued Hospital, Clinic, or Other Facility Administered Medication Ordered Dose Route Frequency Start Date End Date Status lidocaine (Xylocaine) 2 % injection 20 mgIndications:Neoplasm of uncertain behavior 20 mg IJ Once 10/23/2023 Active Active Problems Problem Noted Date Diagnosed Date Benign essential HTN 05/12/2024 Assessment & Plan (08/04/2024 2:20 PM EDT): Uncontrolled today, noncompliant with lisinopril, she had [...] with me in 4 to 6 weeks. Assessment & Plan (05/12/2024 1:51 PM EST): [...] She will need to schedule a colonoscopy. 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 F/u next appointment with labs Encounters Date Type Department Care Team Description 11/17/2024 Telephone [facility] [address] [place] [phone] Medina Sanches RN Appointment Request 11/17/2024 Travel 11/16/2024 Travel 11/10/2024 11:15 AM EDT Office Visit [address] [address] Milena Acevedo MD Abnormal mammogram of left breast (Primary Dx); Encounter for initial prescription of injectable contraceptive 11/10/2024 Travel 11/09/[address] [address] Milena Acevedo MD chart prep 11/09/2024 Travel 11/06/[address] [address] Milena Acevedo MD 11/01/2024 Patient Outreach [address] [address] Milena Acevedo MD Pre-visit Planning ((Unable to reach for PVP screening, LVM) to be completed in office ) 08/29/2024 10:30 AM EDT Clinical Support [address] [address] Marv Guzmán RN Primary hypertension [I10] 08/29/2024 Travel 08/28/2024 Travel 08/18/[address] [address] Milena Acevedo MD November recall from Last 3 Months Immunizations Immunization Administration Dates Next Due Influenza, seasonal, injectable, preservative fr ee 11/25/2023 Social History Tobacco Use Types Packs/Day Years Used Date Smoking Tobacco: Never Passive Smoke Exposure: Never Smokeless Tobacco: Never Tobacco Cessation:Counseling Given: [...] 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 file Not on file Not on file Last Filed Vital Signs Vital Sign Reading Time Taken Comments Blood Pressure 148/100 11/10/2024 11:32 AM EDT Pulse 80 11/10/2024 11:32 AM EDT Temperature 36.6 C (97.9 F) 11/10/2024 11:32 AM EDT Respiratory Rate 22 11/10/2024 11:32 AM EDT Oxygen Saturation 98% 08/29/2024 10:30 AM EDT Inhaled Oxygen Concentration - - Weight 86.4 kg (190 lb 6.4 oz) 11/10/2024 11:32 AM EDT Height 167.6 cm (5' 6 ) 11/10/2024 11:32 AM EDT Body Mass Index 30.73 11/10/2024 11:32 AM EDT Plan of Treatment Upcoming Encounters Date Type Department Care Team (Late st Contact Info) Description 11/23/2024 10:30 AM EDT Clinical Support [facility] [address] [place] [address] 01/26/2025 10:30 AM EST Office Visit [facility] [address] [place] [address] Milena Acevedo MD [address] [place] [address] Health Maintenance Due Date Last Done Comments CT Colonography 1975 Colonoscopy 1975 Colorectal Cancer Screening 1975 FIT DNA/Cologuard 1975 FIT 1975 FOBT 1975 HIV Screening 1975 Sigmoidoscopy 1975 DTaP/Tdap/Td Vaccines (1 - Tdap) 06/09/1995 Hepatitis B Vaccines (1 of 3 - 19+ 3-dose series) 06/09/1995 Cervical Cancer Screening 09/28/2024 HPV/Cotest 09/28/2024 09/29/2019 Pap Smear 09/28/2024 09/29/2019 COVID-19 Vaccine ( - 2023-2 5 season) 2024 Influenza Vaccine (#1) 2024 11/25/2023 Family Planning (PISQ) 11/24/2024 11/25/2023 Mammogram 01/27/2025 01/28/2024, 12/17/2023 Disability Screening 08/04/2025 08/04/2024 Alcohol/Substance Use Screening 11/10/2025 11/10/2024 Depression Screening 11/10/2025 11/10/2024, 11/10/2024 SDOH Screening 11/10/2025 11/10/2024 Tobacco Screening 11/10/2025 11/10/2024 Zoster Vaccines (1 of 2) 2026 Lipid Panel 11/29/2028 11/30/2023 RSV Patients and Patients Aged 60 years or older (1 - 1-dose 75+ series) 06/09/2051 Hepatitis C Screening Completed 11/30/2023 HIB Vaccines [...] patient's age to complete this topic Meningococcal B Vaccine Aged Out No l onger eligible based on patient's age to complete this topic Meningococcal Vaccine Aged Out No diana stew eligible based on patient's age to complete this topic Pneumococcal Vaccine: Pediatrics (0 to 5 Years) and At-Risk Patients (6 to 49) Years Aged Out No longer eligible b ased on patient's age to complete this topic RSV under 20 months Aged Out No longe r eligible based on patient's age to complete this topic Rotavirus Vaccines Aged Out No longer eligible based on patient's age to complete this topic Procedures Procedure Name Priority Date/Time Associated Diagnosis Comments POCT , URINE Routine 11/10/2024 12:24 PM EDT Encounter for initial prescription of injectable contraceptive BI US BREAST LIMITED BILATERAL Routine 01/28/2024 11:00 AM EST HEPATITIS PANEL, GENERAL Routine 11/30/2023 9:21 AM EDT Adjustment disorder with depressed mood LIPID PANEL WITH REFLEX TO DIRECT LDL Routine 11/30/2023 9:20 AM EDT Adjustment disorder with depressed mood HM PAP/HPV Routine 09/29/2019 8:11 AM EDT from Last 3 Months or Most Recently Relevant to Health Maintenance Results * POCT Urine (11/10/2024 12:24 PM EDT) Preg Test, Ur Negative Negative, Indeterminate, None Detected, Invalid, Specimen unsatisfactory for evaluation, Weakly Positive, 2+ QC Media Lot # [id number] Lot# Expiration Date [id number] Urine 11/10/2024 12:2 4 PM EDT Milena Acevedo MD POINT OF CARE TEST ENTER /EDIT ORDERABLES Final Result * BI US Breast Limited Bilateral (01/28/2024 11:00 AM EST) Anatomical Region Laterality Modality Breast Bilateral Ultrasound 01/28/2024 11:0 0 AM EST Narrative 01/28/2024 12:01 PM EST [facility] [address] [place] [address] Ultrasound Report Signed Patient: Kylie Donovan MR#: [id number] : 1975 Acct:[id number] Age/Sex: 48 / F ADM Date: 01/28/24 Loc: HO.MAMMO Attending Dr: Milena Acevedo MD Ordering Physician: Milena Acevedo MD Date of Service: 01/28/24 Procedure(s): US breast BI limited mamm only Accession Number(s): [id number] cc: Milena Acevedo MD EXAMINATION: US DIAGNOSTIC [...] Guillermo Rush MD 01/28/2024 11:58 AM EST RP Dictated By: Guillermo Rush MD Signed By: <Electronically signed by Guillermo Rush MD in OV> 01/28/24 1158 DD/ 1100 TD/TT: 01/28/24 1120 Career Resource Technician: Procedure Note Donotuseinterpreter, Image - 01/28/2024 [facility] [address] [place] [address] [place] [address] Ultrasound Report Signed Patient: Michi Donovan#: [id number] : 1975Acct:[id number] Age/Sex: 48 / FADM Date: 01/28/24 Loc: HO.MAMMO Attending Dr: Milena Acevedo MD Ordering Physician: Milena Acevedo MD Date of Service: 01/28/24 Procedure(s): US breast BI limited mamm only Accession Number(s): [id number] cc: Milena Acevedo MD EXAMINATION: US DIAGNOSTIC [...] by: Guillermo Rush MD 01/28/2024 11:58 AM [facility] Dictated By: Guillermo Rush MD Signed By: <Electronically signed by Guillermo Rush MD in OV> 01/28/24 1158 DD/ 1100 TD/TT: 01/28/24 1120 Career Resource Technician: Milena Acevedo MD IMG US PROCEDURES Final Result * Hepatitis Panel, General (11/30/2023 9:21 AM EDT) Hepatitis A IgM Nonreactive Nonreactive [facility] Comment:IgM antibodies to GALVEZ V not detected; does not exclude earlyacute or recovered HAV infection. ~Hepatitis B Surface Antibody NONREACTIVE Nonreactive [facility] Comment:Nonreactive: < 8.00 mIU/mL Hepatitis B Core Antibody Nonreactive Nonreactive [facility] Hepatitis C Antibody Nonreactive Nonreactive [facility] Comment:Antibodies to HCV no t detected; does not exclude early acuteHCV infection. Hepatitis B Surface Ag Negative Negative [facility] Blood 11/30/2023 9:21 AM EDT 11/30/2023 11:26 AM EDT us Milena Acevedo MD LAB BLOOD ORDERABLES Fin al Result [facility] [address] [place] [phone] * Lipid Panel with Reflex to Direct LDL (11/30/2023 9:20 AM EDT) Triglycerides 67 <150 mg/dL [facility] Comment:Desirable Triglyceri de: less than 150 mg/dLBorderline High Triglyceride 150-199 mg/dLHigh Triglyceride: 200-499 mg/dLVery High Triglyceride: greater than or equal to 5OO mg/dL Cholesterol 150 <200 mg/dL [facility] Comment:Desirable Cholestero l: less than 200 mg/dLBorderline High Cholesterol: 200-239 mg/dLHigh Cholesterol: greater than 239 mg/dL LDL Cholesterol Calculated 93 <100 mg/dL [facility] Comment:Desirable LDL: less than 100 mg/dLNear Optimal/Above Optimal LDL: 110- 129 mg/dLBorderline High LDL: 130-159 mg/dLHigh LDL: 160-189 mg/dLVery High LDL: greater than or equal to 190 mg/dL HDL Cholesterol 44 >40 mg/dL [facility] Comment:Desirable HDL: great er than 40 mg/dL Note: This HDL assay may give artificially low results in patients with liver disease. Blood 11/30/2023 9:20 AM EDT 11/30/2023 11:26 AM EDT Milena Acevedo MD LAB BLOOD ORDERABLES Fin al Result [facility] [address] [place] [phone] * HM PAP/HPV (09/29/2019 8:11 AM EDT) Pap Smear 1. NILM 1. NILM HPV Undetected Undetected, Indeterminate , Quantitative, Not Detected Historical Provider HEALTH MAINTENANCE Edited Result - Final from Last 3 Months or Most Recently Relevant to Health Maintenance Insurance [facility] Care Teams Extractions Technologist Relationship Specialty Start Date End Date Milena Acevedo MD [address] [place] [phone] PCP - General Internal Medicine 11/25/23
--- OUTSIDE RECORDS SUMMARY | 2024-11-17 11:58 | XMS_ITS | Encounter Summary ---
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 file Not on file Not on file documented as of this encounter Plan of Treatment Upcoming Encounters Date Type Department Care Team (Late st Contact Info) Description 11/23/2024 10:30 AM EDT Clinical Support [address] [address] 01/26/2025 10:30 AM EST Office Visit [address] [address] Milena Acevedo MD [address] [place] [phone] documented as of this encounter Visit Diagnoses Not on filedocumented in this encounter Additional Health Concerns Assessment Noted Time PHQ-9 Depression Total Score: 1 11/11/19 25 11:35 AM EDT documented as of this encounter Care Teams Celebrity Manager Relationship Specialty Start Date End Date Milena Acevedo MD [address] [place] [phone] PCP - General Internal Medicine 11/25/23 documented as of this encounter
--- OUTSIDE RECORDS SUMMARY | 2024-11-17 11:58 | XMS_ITS | Encounter Summary ---
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 Not on file Not on file documented as of this encounter Plan of Treatment Upcoming Encounters Date Type Department Care Team ([facility] st Contact Info) Description 11/23/2024 10:30 AM EDT Clinical Support [address] [phone] 01/26/2025 10:30 AM EST Office Visit [address] [phone] Milena Acevedo MD [address] [place] [phone] documented as of this encounter Procedures Procedure Name Priority Date/Time Associated Diagnosis Comments PAP/HPV Routine 09/29/2019 8:11 AM EDT documented in this encounter Results * HM PAP/HPV (09/29/2019 8:11 AM EDT) Pap Smear 1. NILM 1. NILM HPV Undetected Undetected, Indeterminate , Quantitative, Not Detected us Historical Provider HEALTH MAINTENANCE Edited Result - Final documented in this encounter Visit Diagnoses Not on filedocumented in this encounter Additional Health Concerns Assessment Noted Time PHQ-9 Depression Total Score: 1 11/25/19 24 3:06 PM EDT documented as of this encounter Care Teams Retail Loan Originator Relationship Specialty Start Date End Date Milena Acevedo MD [address] [place] [phone] PCP - General Internal Medicine 11/25/23 documented as of this encounter
--- OUTSIDE RECORDS SUMMARY | 2024-11-17 11:58 | XMS_ITS | Encounter Summary ---
Author Organization [employer] Address [address] [facility] [address] [place] [address] Care Team Providers Care Certified Welding Inspector Name Role Phone Milena Acevedo MD Primary Care Provider + Reason for Visit * Reason Onset Date Comments Appointment Request 11/17/2024 Encounter Details Date Type Department Care Team ([facility] Contact Info) Description 11/17/[address] 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 Presented today for DEPO however reports LMP 10/08/24 and pt. Reports menstrual cycle has never been late before and has previously been very regular. Pt. Would like HCG bloodwork ordered and she reports she has done multiple urine tests at home which have been negative. Pt. Declines depo today and until HCG in blood returns negative. Bloodwork ordered. Pt. Going to lab now and DEPO appt. Has been r/s to 11/23/24. documented in this encounter Plan of Treatment Upcoming Encounters Date Type Department Care Team (Late st Contact Info) Description 11/23/2024 10:30 AM EDT Clinical Support [facility] MEDICINE [address] [place] [phone] 01/26/2025 10:30 AM EST Office Visit [facility] MEDICINE [address] [place] [phone] Milena Acevedo MD [address] [place] [phone] Scheduled Orders Name Type Priority Associated Diagnoses Orde r Schedule hCG, Total, Quantitative Lab Routine Amenorrhea Expected: 11/17/2024 (Approximate), Expires: 11/17/2025 documented as of this encounter Visit Diagnoses Diagnosis Amenorrhea Absence of menstruation documented in this encounter Additional Health Concerns Assessment Noted Time PHQ-9 Depression Total Score: 1 11/11/19 25 11:35 AM EDT documented as of this encounter Care Teams Certified Welding Inspector Relationship Specialty Start Date End Date Milena Acevedo MD [address] [place] [phone] PCP - General Internal Medicine 11/25/23 documented as of this encounter
[2024-11-17 12:25] LABS: Anion Gap 12 (12-20); Blood Urea Nitrogen 11 mg/dL (9-16); Calcium 8.8 mg/dL (8.4-10.2); Carbon Dioxide 26 mmol/L (22-29); Chloride 105 mmol/L (96-108); Estimated Glomerular Filt Rate > 60; Potassium 4.3 mmol/L (3.3-5.1); Sodium 139 mmol/L (135-145)
== END 2024-11-17 09:59 | disposition home or self-care (01) ==
LOC: HO.HHCL 09:58
PROVIDERS: PCP Internal Medicine; Visit Provider Internal Medicine
DX: N91.2 Amenorrhea, unspecified (principal); R21 Rash and other nonspecific skin eruption; I10 Essential (primary) hypertension
CPT/HCPCS: 36415; 80048; 84702

== ENCOUNTER 2024-12-26 11:01 | Outpatient (REF) | payer OTHER, SELFPAY ==
--- NOTE | ~2024-12-26 | US_ITS ---
EXAMINATION: US RETROPERITONEAL LIMITED (RENAL ONLY) CLINICAL INFORMATION: Gross hematuria. COMPARISON: None available. TECHNIQUE: Real-time imaging of the kidneys and urinary bladder. FINDINGS: RIGHT KIDNEY: 10.0 x 4.3 x 5.8 cm (SAG x AP x TRV). The kidney is normal in size, contour, and echogenicity. Renal cortical thickness is normal. No calculi or focal parenchymal lesions. No hydronephrosis. LEFT KIDNEY: 11.3 x 6.5 x 6.7 cm (SAG x AP x TRV). The kidney is normal in size, contour, and echogenicity. Renal cortical thickness is normal. No calculi or focal parenchymal lesions. No hydronephrosis. BLADDER: The urinary bladder is well distended. No wall thickening or masses. No calculi. Bilateral ureteral jets are visualized. Prevoid volume is 529 mL. Postvoid volume is 27 mL. US/US renal BI IMPRESSION: 1. Normal bilateral kidneys. 2. Normal urinary bladder with postvoid residual of 27 mL. 3. Etiology of hematuria is not clear based on this exam. Electronically signed by: Guillermo Rush MD 12/26/2024 04:54 PM EDT
--- NOTE | ~2024-12-26 | US_ITS ---
EXAMINATION: US PELVIS, COMPLETE CLINICAL INFORMATION: Gross hematuria. Pelvic pain. COMPARISON: None TECHNIQUE: Transabdominal and transvaginal imaging was performed. FINDINGS: LMP: Now Uterus is anteverted , measuring 13.5 x 5.9 x 5.7 cm. Heterogeneous focus with mixed isoechoic and hypoechoic texture in the right isthmus/fundus. Measures 4.6 x 4.8 x 4.7 cm. This is nonspecific, could reflect a fibroid. Small anechoic focus in the myometrium, probable cysts. Endometrial thickness 0.9 cm. Right ovary measures 2 x 2 x 1.4 cm. Volume 2.9 mL. Left ovary measures 2.4 x 2.6 x 2.2 cm. Volume 7.2 mL. Only visualized on the transabdominal scanning. Follicle present. Limited visualization of the ovaries, vascular flow not well evaluated No free fluid in the cul-de-sac. US/US pelvic and transvaginal IMPRESSION: * Heterogeneous focus in the right isthmus/fundus measuring 4.8 cm, nonspecific. Differential considerations include fibroid. Further imaging as clinically indicated. * Limited visualization/evaluation of bilateral ovaries. Limited evaluation of vascular flow. Clinically correlate. Repeat ultrasound as clinically indicated. Electronically signed by: Leonardo Malik MD 12/26/2024 05:03 PM EDT
[2024-12-26 13:03] LABS: MANUAL DIFF FLAG NO
[2024-12-26 13:10] LABS: Hematocrit 41.0 % (37.0-47.0); Hemoglobin 13.5 g/dl (12.0-16.0); Imm Gran Abs Auto 0.05 X10*3/uL (0.00-0.03); Imm Gran Pct Auto 0.4 % (0.0-0.4); Lymphocytes Absolute Auto 3.6 X10*3/uL (1.2-4.9); Mean Corpuscular HGB Conc 32.9 g/dl (31.0-35.0); Mean Corpuscular Hemoglobin 30.5 pg (27.0-33.0); Mean Corpuscular Volume 92.8 fL (80.0-98.0); NRBC Abs Auto 0.000 X10*3/uL (0.0-0.012); NRBC Pct Auto 0.0 /100WBC (0.0-0.2); Platelet Count 393 X10*3/uL (160-400); Red Blood Count 4.42 X10*6/uL (4.20-5.50); White Blood Count 12.6 X10*3/uL (4.8-10.8)
[2024-12-26 13:30] LABS: Alanine Aminotransferase 20 U/L (0-31); Albumin Level 4.5 g/dL (3.5-5.0); Alkaline Phosphatase 69 U/L (39-117); Anion Gap 12 (12-20); Aspartate Amino Transferase 20 U/L (5-31); Blood Urea Nitrogen 9 mg/dL (9-16); Calcium 9.2 mg/dL (8.4-10.2); Carbon Dioxide 25 mmol/L (22-29); Chloride 108 mmol/L (96-108); Estimated Glomerular Filt Rate > 60; Potassium 3.8 mmol/L (3.3-5.1); Sodium 141 mmol/L (135-145); Total Protein 6.9 g/dL (6.5-8.0)
== END 2024-12-26 11:02 | disposition home or self-care (01) ==
LOC: HO.US 11:01
PROVIDERS: PCP Internal Medicine; Referring Provider General Practice; Visit Provider Student in an Organized Health Care Education/Training Program
DX: R31.0 Gross hematuria (principal); R10.20 Pelvic and perineal pain unspecified side
CPT/HCPCS: 36415; 76775; 76830; 76856; 80053; 85025

== ENCOUNTER → 2024-12-26 16:35 | Outpatient (BNV) | payer OTHER, SELFPAY | PROVIDERS: PCP Internal Medicine; Referring Provider General Practice; Visit Provider Radiology Diagnostic Radiology | DX: R31.0 Gross hematuria (principal); R10.20 Pelvic and perineal pain unspecified side | CPT/HCPCS: 76775; 76830; 76856 ==